=== PATIENT | male | born 1950 | race Two or more races ===

== ENCOUNTER 2023-03-15 23:33 | Emergency (ER) | payer OTHER ==
[~2023-03-15] VITALS: Ht 172.7 cm; Wt 86.4 kg
[2023-03-15 23:38] VITALS: BP 145/74; RESP 20; O2SAT 98
[2023-03-16 05:50] VITALS: PULSE 77
== END 2023-03-16 05:44 | disposition home or self-care (01) ==
LOC: EDBD 23:33 → ER 23:33
DX: S16.1XXA Strain of muscle, fascia and tendon at neck level, initial encounter (principal); S46.812A Strain of other muscles, fascia and tendons at shoulder and upper arm level, left arm, initial encounter; R51.9 Headache, unspecified; E11.9 Type 2 diabetes mellitus without complications; I10 Essential (primary) hypertension; V53.5XXA Driver of pick-up truck or van injured in collision with car, pick-up truck or van in traffic accident, initial encounter; Y93.I9 Activity, other involving external motion; Y92.89 Other specified places as the place of occurrence of the external cause; Y99.8 Other external cause status
CPT/HCPCS: 70450; 71250; 72125; 73030; 74176; 93005

== ENCOUNTER 2025-03-31 13:33 | Inpatient (IN) | payer OTHER, MEDICAID ==
[~2025-03-31] VITALS: Ht 172.7 cm; Wt 86.4 kg
[~2025-03-31 13:33] MED LIST: CETI-120 PO; HYDR-4798 PO; LISI-275 PO; METF-372 PO; ROSU10TA64 PO
--- NOTE | 2025-03-31 13:44 | ECG ---
[facility] Test Date: 2025-03-31 Test Time: 13:36:20 Pat Name: EVELIA SHERWOOD Department: [facility] ED Patient ID: [id number] Room: 0217T Gender: M Meat Team Member: GP : 1950 Requested By: KAR GOINS Order Number: [id number] Reading MD: Gatito St Measurements Intervals [place] Rate: 72 P: 28 DE: 156 QRS: -50 QRSD: 128 T: 74 QT: 429 QTc: 470 Interpretive Statements Sinus rhythm Nonspecific IVCD with LAD Electronically Signed On 04-04-2025 22:02:[address] Please click the below link to view image of tracing.
[2025-03-31 14:10] LABS: Chloride 104 mmol/L (98-107); Potassium 4.1 mmol/L (3.5-5.1); Sodium 137 mmol/L (136-145)
[2025-03-31 14:11] LABS: Anion Gap 8 (5-15); Carbon Dioxide 25 mmol/L (20-31)
[2025-03-31 14:15] LABS: Hematocrit 42.4 % (41.0-53.0); Hemoglobin 15.3 g/dL (13.5-17.5); Mean Corpuscular Hemoglobin 29.4 pg (28.0-32.0); Mean Corpuscular Volume 81.5 fL (80.0-100.0); Nucleated Red Blood Cells % 0.1 %
[2025-03-31 14:16] LABS: BUN/Creatinine Ratio 11.8 (10.0-20.0); Blood Urea Nitrogen 9 mg/dL (9-23)
[2025-03-31 14:17] LABS: Calcium 8.7 mg/dL (8.7-10.4); Glucose 183 mg/dL (74-106)
--- NOTE | 2025-03-31 14:27 | DVH ---
EXAM: XY CHEST PORTABLE HISTORY: sob TECHNIQUE: 1 view of the chest COMPARISON: None FINDINGS/IMPRESSION: LUNGS: No pleural effusion, consolidation, or pneumothorax MEDIASTINUM: Unremarkable BONES: No acute osseous abnormality OTHER: None
[2025-03-31] MEDS: ENOXAPARIN SOD 80 MG/0.8ML SYRINGE SC ONE (14:57)
[2025-03-31] MEDS: METOPROLOL TARTRATE 50 MG TAB PO ONE (14:57)
--- NOTE | 2025-03-31 15:03 | DVHINCON2 ---
Date Seen: Mar 31, [address] Amaya Reason for Consultation NSTEMI History of Present Illness A 74-year-old male with a history of type 2 diabetes mellitus, hypertension, and neuropathy presented to the ED via EMS with complaint of chest pain. The patient reports that yesterday, while watching TV he developed a nonradiating chest pressure that lasted about 30 minutes. He states that walking around he lped relieve the discomfort. Later that night while in bed, he experienced chest pain again, which resolved after taking Caret. Today, he presented to [facility], were abnormal labs prompted transferred to the ED. on arrival, he is alert and oriented x3 and reports resolution of chest pressure. He denies diaphoresis, syncope, dyspnea, or shortness of breath. A 12 lead EKG revealed normal sinus rhythm with PVCs. Initial troponin was 198. Past Medical History As stated in HPI Past Surgical History Denies Family History Reviewed, non-contributory to the management of this case. Social History The patient lives at home, denies smoking, alcohol or illicit drugs abuse. Allergies: Coded Allergies: NO KNOWN ALLERGIES (Unverified , 03/31/25) Review of Systems Constitutional: No symptom reported Ears, Nose, & Throat: No symptom reported Eyes: No symptom reported Neurological: No symptoms reported Pulmonary/Respiratory: No symptom reported Cardiovascular: Chest pain Gastrointestinal: No symptom reported Genitourinary: No symptom reported Musculoskeletal: No symptom reported Skin: No symptom reported Psychiatric: No symptom reported Endocrine: No symptom reported Hemotologic/Lymphatic: No symptom reported Vital Signs Vital Signs Date Time Temp Pulse Resp B/P (MAP) Pulse Ox O2 Delivery O2 Flow Rate FiO2 03/31/25 14:37 Room Air* 0 21 03/31/25 14:24 71 03/31/25 13:51 97.6 20 146/90 98 97.6 Physical Exam INITIAL VITAL SIGNS: Reviewed by me GENERAL: Alert and interactive. No acute distress. HEAD: Head is normocephalic and atraumatic. EYES: EOMI, PERRL. No scleral icterus. No conjunctival injection. ENT: Moist mucous membranes. NECK: Supple, No masses, Full range of motion. RESPIRATORY: No tachypnea. Clear breath sounds bilaterally. No wheezing, rales, rhonchi. CV: Regular rate and rhythm. No murmurs, rubs, or gallops. GI/: Active bowel sounds, soft, nondistended, nontender. No guarding. No rebound. No masses. No CVA tenderness. INTEGUMENTARY: Warm and dry. No obvious rashes. NEUROLOGIC: Alert and oriented. Face is symmetric. Speech is normal. Moves all extremities equally. Labs/Diagnostic Data Labs Test 03/31/25 14:40 03/31/25 13:45 Range/Units White Blood Count 7.6 4.4-10.8 10^3/uL Red Blood Count 5.21 4.5-5.90 10^6/uL Hemoglobin 15.3 13.5-17.5 g/dL Hematocrit 42.4 41.0-53.0 % Mean Corpuscular Volume 81.5 80.0-100.0 fL Mean Corpuscular Hemoglobin 29.4 28.0-32.0 pg Mean Corpuscular Hemoglobin Concent 36.1 H 32.0-36.0 g/dL Red Cell Distribution Width 13.7 11.8-14.3 % Platelet Count 205 140-450 10^3/uL Mean Platelet Volume 7.8 6.9-10.8 fL Neutrophils (%) (Auto) 68.6 37.0-80.0 % Lymphocytes (%) (Auto) 25.6 10.0-50.0 % Monocytes (%) (Auto) 4.5 0.0-12.0 % Eosinophils (%) (Auto) 0.5 0.0-7.0 % Basophils (%) (Auto) 0.8 0.0-2.0 % Neutrophils # (Auto) 5.2 1.6-8.6 10 ^3/uL Lymphocytes # (Auto) 1.9 0.4-5.4 10 ^3/uL Monocytes # (Auto) 0.3 0-1.3 10 ^3/uL Eosinophils # (Auto) 0 0-0.8 10 ^3/uL Basophils # (Auto) 0.1 0-0.2 10 ^3/uL Nucleated Red Blood Cells 0.1 % Sodium Level 137 136-145 mmol/L Potassium Level 4.1 3.5-5.1 mmol/L Chloride Level 104 98-107 mmol/L Carbon Dioxide Level 25 20-31 mmol/L Anion Gap 8 5-15 Blood Urea Nitrogen 9 9-23 mg/dL Creatinine 0.76 0.700-1.30 mg/dL Glomerular Filtration Rate Calc 94 >90 mL/min BUN/Creatinine Ratio 11.8 10.0-20.0 Serum Glucose 183 H 74-106 mg/dL Calcium Level 8.7 8.7-10.4 mg/dL PROCEDURE(s): CXRP - CHEST PORTABLE REASON: sob ORDER NUMBER(s): [id number], ACCESSION NUMBER(s): [id number] EXAM: XY CHEST PORTABLE HISTORY: sob TECHNIQUE: 1 view of the chest COMPARISON: None FINDINGS/IMPRESSION: LUNGS: No pleural effusion, consolidation, or pneumothorax MEDIASTINUM: Unremarkable BONES: No acute osseous abnormality OTHER: None Assessment NSTEMI possible type 1 Chest pain to rule out ACS Hypertension Diabetes mellitus type 2 Neuropathy Plan/Recommendation (Dr. Weems ): * ACS protocol * Aspirin, atorvastatin, metoprolol * Echocardiogram to assess ventricular function and structural abnormalities * Magnesium IV x 1 for PVCs * Monitor electrolytes and replete as needed * Continue telemetry monitoring * Optimize management of diabetes and hypertension per primary team Scheduled for left heart catheterization tomorrow 04/01/[address] Weems. Risk/benefits discussed with patient, patient agrees to proceed. Consent obtained This medical document was created using an electronic medical record system with voice recognition software and computerized dictation system. Although this document has been carefully reviewed, there might still be some phonetic and typographical errors. Occasional wrong-word or ``sound-alike substitutions may have occurred due to the inherent limitations of voice recognition software. These areas are purely typographical due to imperfections of the software programs and do not reflect any compromise in the patient's medical care. Please read the chart carefully and recognize, using context, where these substitutions have occurred. Plan discussed with: Patient Plan discussed with: Patient, Other (RN) NYHA Physical activity limitations: NA Date of Service: Mar 31, 2025 Billing Provider: PERNELL WEEMS MD Cardiology Common Codes: NOT BILLABLE Cardiology Consultation Codes: 29101-[id number] CONSULT <45MIN TYRESE ATKINS NEGATIVE DEVELOPER Mar 31, 2025 15:03
--- NOTE | 2025-03-31 15:15 | DVHINCON2 ---
Allergies: Coded Allergies: NO KNOWN ALLERGIES (Unverified , 03/31/25) Vital Signs Vital Signs Date Time Temp Pulse Resp B/P (MAP) Pulse Ox O2 Delivery O2 Flow Rate FiO2 03/31/25 14:57 71 131/75 03/31/25 14:37 Room Air* 0 21 03/31/25 13:51 97.6 20 98 97.6 Labs/Diagnostic Data Labs Test 03/31/25 14:40 03/31/25 13:45 Range/Units White Blood Count 7.6 4.4-10.8 10^3/uL Red Blood Count 5.21 4.5-5.90 10^6/uL Hemoglobin 15.3 13.5-17.5 g/dL Hematocrit 42.4 41.0-53.0 % Mean Corpuscular Volume 81.5 80.0-100.0 fL Mean Corpuscular Hemoglobin 29.4 28.0-32.0 pg Mean Corpuscular Hemoglobin Concent 36.1 H 32.0-36.0 g/dL Red Cell Distribution Width 13.7 11.8-14.3 % Platelet Count 205 140-450 10^3/uL Mean Platelet Volume 7.8 6.9-10.8 fL Neutrophils (%) (Auto) 68.6 37.0-80.0 % Lymphocytes (%) (Auto) 25.6 10.0-50.0 % Monocytes (%) (Auto) 4.5 0.0-12.0 % Eosinophils (%) (Auto) 0.5 0.0-7.0 % Basophils (%) (Auto) 0.8 0.0-2.0 % Neutrophils # (Auto) 5.2 1.6-8.6 10 ^3/uL Lymphocytes # (Auto) 1.9 0.4-5.4 10 ^3/uL Monocytes # (Auto) 0.3 0-1.3 10 ^3/uL Eosinophils # (Auto) 0 0-0.8 10 ^3/uL Basophils # (Auto) 0.1 0-0.2 10 ^3/uL Nucleated Red Blood Cells 0.1 % Sodium Level 137 136-145 mmol/L Potassium Level 4.1 3.5-5.1 mmol/L Chloride Level 104 98-107 mmol/L Carbon Dioxide Level 25 20-31 mmol/L Anion Gap 8 5-15 Blood Urea Nitrogen 9 9-23 mg/dL Creatinine 0.76 0.700-1.30 mg/dL Glomerular Filtration Rate Calc 94 >90 mL/min BUN/Creatinine Ratio 11.8 10.0-20.0 Serum Glucose 183 H 74-106 mg/dL Calcium Level 8.7 8.7-10.4 mg/dL TYRESE ATKINS [facility] Mar 31, 2025 15:15
[2025-03-31 15:36] LABS: Triglycerides 131 mg/dL (< 150)
[2025-03-31 15:38] LABS: Cholesterol 93 mg/dL (< 200)
--- NOTE | 2025-03-31 15:41 | ED.PDOC ---
History of Present Illness HPI Comments 74-year-old male brought by paramedics from [facility] ([facility] because of chest pain. Patient states that he has been having chest pain since yesterday for which he went to [facility] ([facility] did some basic lab work when show troponin to be elevated. He was given aspirin in the field. Patient continues to have chest pain. History of hypertension diabetes. Denies any other symptoms. Chief Complaint: Chest Pain Time Seen by MD: 13:52 Primary Care Provider: UNKNOWN Reviewed Notes: Nurses Notes, Medications, Allergies Allergies: Coded Allergies: NO KNOWN ALLERGIES (Unverified , 03/31/25) Information Source: Patient, Emergency Med Personnel Mode of Arrival: EMS Severity: Moderate Timing: Days Duration: Since onset Past Medical History PAST MEDICAL HISTORY: DM, HTN Surgical History: Denies all surgeries Family History Family History: Unknown Social History Smoker: Non-Smoker Alcohol: Denies ETOH Use Drugs: Denies Drug Use Lives In: Home Constitutional: denies: chills, diaphoresis, fatigue, fever, malaise, sweats, weakness, others EENTM: denies: blurred vision, double vision, ear bleeding, ear discharge, ear drainage, ear pain, ear ringing, eye pain, eye redness, hearing loss, mouth pain, mouth swelling, nasal discharge, nose bleeding, nose congestion, nose pain, photophobia, tearing, throat pain, throat swelling, voice changes, others Respiratory: denies: cough, hemoptysis, orthopnea, SOB at rest, shortness of breath, SOB with excertion, stridor, wheezing, others Cardiovascular: reports: chest pain; denies: dizzy spells, diaphoresis, Dyspnea on exertion, edema, irregular heart beat, left arm pain, lightheadedness, palpitations, PND, syncope, others Gastrointestinal: denies: abdomen distended, abdominal pain, blood streaked bowels, constipated, diarrhea, dysphagia, difficulty swallowing, hematemesis, melena, nausea, poor appetite, poor fluid intake, rectal bleeding, rectal pain, vomiting, others Genitourinary: denies: burning, dysuria, flank pain, frequency, hematuria, incontinence, penile discharge, penile sore, pain, testicle pain, testicle swelling, urgency, others Neurological: denies: dizziness, fainting, headache, left sided numbness, left sided weakness, numbness, paresthesia, pre-existing deficit, right sided numbn ess, right sided weakness, seizure, speech problems, tingling, tremors, weakness, others Musculoskeletal: denies: back pain, gout, joint pain, joint swelling, muscle pain, muscle stiffness, neck pain, others Integumetry: denies: bruises, change in color, change in hair/nails, dryness, laceration, lesions, lumps, rash, wounds, others Allergic/Immunocompromised: denies: Difficulty Healing, Frequent Infections, Hives, Itching, others Hematologic/Lymphatic: denies: anemia, blood clots, easy bleeding, easy bruising, swollen glands, others Endocrine: denies: excessive hunger, excessive sweating, excessive thirst, excessive urination, flushing, intolerance to cold, intolerance to heat, unexplained weight gain, unexplained weight loss, others Psychiatric: denies: anxiety, bipolar disorder, depression, hopeless, panic disorder, schizophrenia, sleepless, suicidal, others Physical Exam General Appearance: Moderate Distress HEENT: Normal ENT Inspection, Pharynx Normal, TMs Normal Neck: Full Range of Motion, Non-Tender, Normal, Normal Inspection Respiratory: Chest Non-Tender, Lungs Clear, No Accessory Muscle Use, No Respiratory Distress, Normal Breath Sounds Cardiovascular: No Edema, No JVD, No Murmur, No Gallop, Normal Peripheral Pulses, Regular Rate/Rhythm Breast Exam: Deferred Gastrointestinal: No Organomegaly, Non Tender, No Pulsatile Mass, Normal Bowel Sounds, Soft Genitalia: Deferred Pelvic: Deferred Rectal: Deferred Extremities: No calf tenderness, Normal capillary refill, Normal inspection, Normal range of motion, Non-tender, No pedal edema Musculoskeletal : Apperance: Normal Neurologic: Alert, genetics nurse II-XII nml as Tested, No Motor Deficits, Normal Affect, Normal Mood, No Sensory Deficits Cerebellar Function: Normal Reflexes: Normal Skin: Dry, Normal Color, Warm Peripheral Pulses: 3+ Radial (R), 3+ Radial (L) Lymphatic: No Adenopathy Was a procedure done? Was a procedure done?: No EKG EKG : Pulse Rate (adult): 88 Cardiac Rhythm: PVC's Differential Dx Considerations may include: Anemia Electrolyte imbalance X-Ray, Labs, Meds, VS Vital Signs Date Time Temp Pulse Resp B/P (MAP) Pulse Ox O2 Delivery O2 Flow Rate FiO2 03/31/25 14:57 71 131/75 03/31/25 14:37 Room Air* 0 21 03/31/25 14:24 71 03/31/25 13:51 97.6 75 20 146/90 98 97.6 03/31/25 13:36 72 Lab Test 03/31/25 14:40 03/31/25 13:45 Range/Units Troponin I High Sensitivity 190 *H 198 *H </=54 ng/L White Blood Count 7.6 4.4-10.8 10^3/uL Red Blood Count 5.21 4.5-5.90 10^6/uL Hemoglobin 15.3 13.5-17.5 g/dL Hematocrit 42.4 41.0-53.0 % Mean Corpuscular Volume 81.5 80.0-100.0 fL Mean Corpuscular Hemoglobin 29.4 28.0-32.0 pg Mean Corpuscular Hemoglobin Concent 36.1 H 32.0-36.0 g/dL Red Cell Distribution Width 13.7 11.8-14.3 % Platelet Count 205 140-450 10^3/uL Mean Platelet Volume 7.8 6.9-10.8 fL Neutrophils (%) (Auto) 68.6 37.0-80.0 % Lymphocytes (%) (Auto) 25.6 10.0-50.0 % Monocytes (%) (Auto) 4.5 0.0-12.0 % Eosinophils (%) (Auto) 0.5 0.0-7.0 % Basophils (%) (Auto) 0.8 0.0-2.0 % Neutrophils # (Auto) 5.2 1.6-8.6 10 ^3/uL Lymphocytes # (Auto) 1.9 0.4-5.4 10 ^3/uL Monocytes # (Auto) 0.3 0-1.3 10 ^3/uL Eosinophils # (Auto) 0 0-0.8 10 ^3/uL Basophils # (Auto) 0.1 0-0.2 10 ^3/uL Nucleated Red Blood Cells 0.1 % Prothrombin Time Pending Prothrombin Time INR Pending Activated Partial Thromboplast Time Pending Sodium Level 137 136-145 mmol/L Potassium Level 4.1 3.5-5.1 mmol/L Chloride Level 104 98-107 mmol/L Carbon Dioxide Level 25 20-31 mmol/L Anion Gap 8 5-15 Blood Urea Nitrogen 9 9-23 mg/dL Creatinine 0.76 0.700-1.30 mg/dL Glomerular Filtration Rate Calc 94 >90 mL/min BUN/Creatinine Ratio 11.8 10.0-20.0 Serum Glucose 183 H 74-106 mg/dL Hemoglobin A1c Pending Calcium Level 8.7 8.7-10.4 mg/dL Triglycerides Level Pending Cholesterol Level Pending LDL Cholesterol Pending HDL Cholesterol Pending Thyroid Stimulating Hormone (TSH) Pending Current Medications Medications (Trade) Dose Ordered Sig/Adonis Route Start Time Stop Time Status Last Admin Metoprolol Tartrate (Lopressor Tablet) 50 mg ONCE ONCE PO 03/31/25 14:30 03/31/25 14:31 DC 03/31/25 14:57 Enoxaparin Sodium (Lovenox) 80 mg ONCE ONCE SC 03/31/25 14:30 03/31/25 14:31 DC 03/31/25 14:57 Patient alert. Complaining of chest pain. Cardiac marker elevated. Vitals stable. Answering questions. EKG does show premature ventricular contractions. Was given metoprolol. Was given Lovenox. Spoke with Cardiology. Was given nitro. Was given morphine. Was given Zofran. Continue monitoring. Bruni approved inpatient admission [id number]. Time of 1ST Reevaluation: 15:39 Reevaluation 1ST: Unchanged Patient Education/Counseling: Diagnosis, Treatment, Prognosis Family Education/Counseling: No Family Present SEPSIS Sepsis Screen Date sepsis recognized/suspect: Mar 31, 2025 Time Sepsis recognized/suspect: 9 Recent Procedure: No On Antibiotic Therapy: No Respiratory Rate >20: No Heart Rate >90: No Temp<36 C (96.8 F) or >38.3 C: No SBP <90 or MAP <65 mmHG: No New Acute Mental Status Change: No Is the patient on CPAP, BIPAP,: No Physician Orders Chest Portable (03/31/25 13:52) Urinalysis (03/31/25 13:52) Troponin-I Hs (03/31/25 16:52) * Cardiology Consult (03/31/25 15:08) PTPTT (03/31/25 15:07) Npo Except For Medications (04/01/25 00:01) Sodium Chloride 0.9% (04/01/25 00:15) Obtain Consent For: (03/31/25 15:07) Hold Enoxaparin Day Of Procedu (04/01/25 00:01) Shave Both Groins (03/31/25 15:07) Provide Education Materials (03/31/25 15:07) Comprehensive Metabolic Panel (04/02/25 04:00) Npo (Nothing By Mouth) Diet (04/01/25 Breakfast) Obtain Consent For Anesthesia (03/31/25 15:07) Magnesium Sulfate 1gm/100ml (03/31/25 15:15) Magnesium (04/01/25 08:00) Aspirin Tablet (04/01/25 10:00) Atorvastatin (Lipitor) (03/31/25 22:00) Lipid Panel (03/31/25 15:07) Hemoglobin A1c (03/31/25 15:07) Thyroid Stimulating Hormone (03/31/25 15:07) Metoprolol Tartrate Tablet (Lopressor Ta (03/31/25 22:00) Echo 2d Mode Cardiac Dop (03/31/25 15:07) Vital Signs Date Time Temp Pulse Resp B/P (MAP) Pulse Ox O2 Delivery O2 Flow Rate FiO2 03/31/25 14:57 71 131/75 03/31/25 14:37 Room Air* 0 21 03/31/25 14:24 71 03/31/25 13:51 97.6 75 20 146/90 98 97.6 03/31/25 13:36 72 Laboratory Tests Test 03/31/25 13:45 White Blood Count 7.6 10^3/uL (4.4-10.8) Medications Medications Dose Ordered Sig/Adonis Route Start Time Stop Time Status Last Admin Dose Admin Enoxaparin Sodium 80 mg ONCE ONCE SC 03/31/25 14:30 03/31/25 14:31 DC 03/31/25 14:57 Metoprolol Tartrate 50 mg ONCE ONCE PO 03/31/25 14:30 03/31/25 14:31 DC 03/31/25 14:57 Departure 1 Departure Time of Disposition: 15:40 Impression: Primary Impression: NSTEMI (non-ST elevated myocardial infarction) Disposition: 09 ADMITTED INPATIENT Admit to: Med Surg Condition: Guarded Critical Care Note Critical Care Time?: No Stability Stability form required: No Heart Score Heart Score: Heart Score Response (Comments) Value History Slightly Suspicious 0 EKG Normal 0 Age >65 2 Risk Factors >3 or Hx ASHD 2 Troponin >3 x's Normal limit 2 Total 6 KAR GOINS MD Mar 31, 2025 15:41
[2025-03-31 15:44] LABS: HDL Cholesterol 34 mg/dL (40-59)
[2025-03-31 15:46] LABS: INR 1.09 (0.9-1.15); Partial Thromboplastin Time 30.8 SEC (24.5-34.5); Prothrombin Time 11.5 sec (9.3-11.8)
[2025-03-31] MEDS: MAGNESIUM SULFATE 1GM/100ML 100 ML IV SCH (17:13)
[2025-03-31 17:19] LABS: Urine Protein, UAD Negative (Negative)
[2025-03-31] MEDS ORDERED: ONDANSETRON HCL 4 MG/2 ML VIAL IV PRN (19:45)
[2025-03-31] MEDS ORDERED: ACETAMINOPHEN 325 MG TAB PO PRN (19:45)
[2025-03-31] MEDS ORDERED: MORPHINE SULFATE INJ 2 MG/ml SYRG IV PRN (19:45)
[2025-03-31] MEDS ORDERED: NITROGLYCERIN 0.4 MG SL TAB SL PRN (19:45)
[2025-03-31] MEDS ORDERED: DEXTROSE (50%) 50ML SYRG IV PRN (19:45)
[2025-03-31 21:50] LABS: COVID19 ANTIGEN SOFIA FIA NEGATIVE (NEGATIVE)
[2025-03-31 22:28] VITALS: BP 129/77; PULSE 63; RESP 18; TEMP 98.2; O2SAT 99
[2025-03-31 22:29] VITALS: BP 130/87; PULSE 67; RESP 17; TEMP 97.8; O2SAT 96
[2025-03-31] MEDS: ATORVASTATIN 20 MG TAB PO SCH (22:41)
[2025-03-31] MEDS: METOPROLOL TARTRATE 25 MG TAB PO SCH (22:46)
[2025-03-31] MEDS: ACCU-CHEK COMFORT CURVE STRIP VI SCH (22:47)
[2025-03-31] MEDS: InsuLIN REG 1unit/0.01ml Soln (100units/ml) SC SCH (23:05)
[2025-04-01] VITALS (13 sets, daily range): BP systolic 116–150; BP diastolic 68–108; PULSE 66–88; RESP 14–20; TEMP 97.4–98.3; O2SAT 95–100
[2025-04-01] MEDS ORDERED: SODIUM CHLORIDE 0.9% 1,000 ML IV SCH (00:15)
--- NOTE | 2025-04-01 00:39 | DVHHP2 ---
History of Present Illness Reason for Visit: Chest pain History of Present Illness 74-year-old male presents for evaluation of chest pain. Patient reports a two day history of chest pain. Patient presented today to the [facility] with chest pain. Patient had elevated troponin levels therefore he was transferred for evaluation. Currently rates the pain at 5/10 intensity. No nausea or vomiting. Reports mild shortness for breath. Past Medical History Hypertension and diabetes mellitus Past Surgical History Denies Family History Noncontributory Smoke: No ALCOHOL: none Drugs: None Lives: with Family Review of Systems Review of Systems Review of systems are currently negative otherwise addressed in HPI. Allergies: Coded Allergies: NO KNOWN ALLERGIES (Unverified , 03/31/25) Medications Current Medications Medications Dose Ordered Sig/Adonis Route Start Time Stop Time Status Last Admin Dose Admin Sodium Chloride 1,000 ml @ 0 mls/hr Q0M IV 04/01/25 00:15 Aspirin 81 mg DAILY PO 04/01/25 10:00 Atorvastatin Calcium 80 mg HS PO 03/31/25 22:00 03/31/25 22:41 80 MG Metoprolol Tartrate 12.5 mg BID PO 03/31/25 22:00 03/31/25 22:46 12.5 MG Diagnostic Test (Pha) 1 strip ACHS 03/31/25 22:00 03/31/25 22:47 1 STRIP Insulin Human Regular ACHS SC 03/31/25 22:00 03/31/25 23:05 6 UNITS Dextrose 50 ml UD PRN IV 03/31/25 19:45 Ondansetron HCl 4 mg Q4HP PRN IV 03/31/25 19:45 Acetaminophen 650 mg Q6HP PRN PO 03/31/25 19:45 Nitroglycerin 0.4 mg Q5MINP PRN SL 03/31/25 19:45 Morphine Sulfate 2 mg Q30M PRN IV 03/31/25 19:45 Exam Vital Signs Vital Signs Date Time Temp Pulse Resp B/P (MAP) Pulse Ox O2 Delivery O2 Flow Rate FiO2 03/31/25 22:46 67 130/87 03/31/25 20:00 15 95 03/31/25 14:37 Room Air* 0 21 03/31/25 13:51 97.6 97.6 Exam Gen: 74-year-old male in mild distress. Skin: Warm, dry, normal color and texture, no rash. HEENT: Normocephalic atraumatic, mucous membranes moist and pink. Neck: Cervical and supraclavicular nodes normal without enlargement, trachea is midline, thyroid gland is normal without masses. Pulmonary: Clear to auscultation and percussion bilaterally. Cardiac: Regular rate and rhythm. No murmur Abdomen: Soft, nontender, nondistended, bowel sounds present all 4 quadrants, no guarding, no rigidity, no organomegaly. Extremities: No cyanosis, clubbing, no edema Neuro: Cranial nerves II through XII grossly intact, normal affect and speech, no focal motor deficits. Labs/Xrays ORDERING PHYSICIAN: KAR GOINS MD PROCEDURE(s): CXRP - CHEST PORTABLE REASON: sob ORDER NUMBER(s): [id number], ACCESSION NUMBER(s): [id number] EXAM: XY CHEST PORTABLE HISTORY: sob TECHNIQUE: 1 view of the chest COMPARISON: None FINDINGS/IMPRESSION: LUNGS: No pleural effusion, consolidation, or pneumothorax MEDIASTINUM: Unremarkable BONES: No acute osseous abnormality OTHER: None Labs Test 03/31/25 22:57 03/31/25 20:23 03/31/25 17:02 03/31/25 16:25 Range/Units POC Glucose 155 H 70-106 mg/dl SARS-CoV-2 Antigen (Rapid) Negative NEGATIVE Troponin I High Sensitivity 201 *H </=54 ng/L Urine Color Light-yellow Yellow Urine Clarity Clear Clear Urine pH 5.5 5.0-9.0 Urine Specific [place] 1.011 1.001-1.035 Urine Protein Negative Negative Urine Ketones Negative Negative Urine Blood Negative Negative /uL Urine Nitrite Negative Negative Urine Bilirubin Negative Negative Urine Urobilinogen Normal Negative mg/dL Urine Leukocyte Esterase Negative Negative /uL Urine RBC None seen 0 - 3 /hpf Urine Microscopic WBC < 1 0-3 /HPF Urine Squamous Epithelial Cells Few <5 /hpf Urine Bacteria None seen None Seen /hpf Urine Glucose 2+ H Normal mg/dL Test 03/31/25 13:45 Range/Units White Blood Count 7.6 4.4-10.8 10^3/uL Red Blood Count 5.21 4.5-5.90 10^6/uL Hemoglobin 15.3 13.5-17.5 g/dL Hematocrit 42.4 41.0-53.0 % Mean Corpuscular Volume 81.5 80.0-100.0 fL Mean Corpuscular Hemoglobin 29.4 28.0-32.0 pg Mean Corpuscular Hemoglobin Concent 36.1 H 32.0-36.0 g/dL Red Cell Distribution Width 13.7 11.8-14.3 % Platelet Count 205 140-450 10^3/uL Mean Platelet Volume 7.8 6.9-10.8 fL Neutrophils (%) (Auto) 68.6 37.0-80.0 % Lymphocytes (%) (Auto) 25.6 10.0-50.0 % Monocytes (%) (Auto) 4.5 0.0-12.0 % Eosinophils (%) (Auto) 0.5 0.0-7.0 % Basophils (%) (Auto) 0.8 0.0-2.0 % Neutrophils # (Auto) 5.2 1.6-8.6 10 ^3/uL Lymphocytes # (Auto) 1.9 0.4-5.4 10 ^3/uL Monocytes # (Auto) 0.3 0-1.3 10 ^3/uL Eosinophils # (Auto) 0 0-0.8 10 ^3/uL Basophils # (Auto) 0.1 0-0.2 10 ^3/uL Nucleated Red Blood Cells 0.1 % Prothrombin Time 11.5 9.3-11.8 sec Prothrombin Time INR 1.09 0.9-1.15 Activated Partial Thromboplast Time 30.8 24.5-34.5 SEC Sodium Level 137 136-145 mmol/L Potassium Level 4.1 3.5-5.1 mmol/L Chloride Level 104 98-107 mmol/L Carbon Dioxide Level 25 20-31 mmol/L Anion Gap 8 5-15 Blood Urea Nitrogen 9 9-23 mg/dL Creatinine 0.76 0.700-1.30 mg/dL Glomerular Filtration Rate Calc 94 >90 mL/min BUN/Creatinine Ratio 11.8 10.0-20.0 Serum Glucose 183 H 74-106 mg/dL Hemoglobin A1c 7.9 H <5.7 % A1C Calcium Level 8.7 8.7-10.4 mg/dL Triglycerides Level 131 < 150 mg/dL Cholesterol Level 93 < 200 mg/dL LDL Cholesterol 48 < 100 mg/dL HDL Cholesterol 34 L 40-59 mg/dL Thyroid Stimulating Hormone (TSH) 2.99 0.55-4.78 uIU/mL SEPSIS Sepsis Screen Date sepsis recognized/suspect: Mar 31, 2025 Time Sepsis recognized/suspect: 1438 Recent Procedure: No On Antibiotic Therapy: No Respiratory Rate >20: No Heart Rate >90: No Temp<36 C (96.8 F) or >38.3 C: No SBP <90 or MAP <65 mmHG: No New Acute Mental Status Change: No Is the patient on CPAP, BIPAP,: No Physician Orders Basic Metabolic Panel (04/01/25 04:00) Glucose Blood (Accu-Chek Comfort Curve T (03/31/25 22:00) Insulin R (Human) (Insulin R) (03/31/25 22:00) Dextrose 50% Syringe (03/31/25 19:45) Admit (03/31/25 19:35) Ondansetron Hcl (Zofran) (03/31/25 19:45) Condition: Fair (03/31/25 19:35) Acetaminophen Tablet (Tylenol Tablet) (03/31/25 19:45) Bedrest With Bathroom Privileg (03/31/25 19:35) Nitroglycerin Sublingual (Ntrostat Subli (03/31/25 19:45) Morphine Sulfate Injection (03/31/25 19:45) Stat Ekg For Chest Pain (03/31/25 19:35) Notify Md Of Changes From Base (03/31/25 19:35) Bundle Clerk For 24 Hours (03/31/25 19:35) Emergency Dysrhythmia Protocol (03/31/25 19:35) Rhythm Strips Once Every Shift (03/31/25 19:35) Oxygen By Nasal Cannula (03/31/25 19:35) Magnesium (04/01/25 04:00) Vital Signs Date Time Temp Pulse Resp B/P (MAP) Pulse Ox O2 Delivery O2 Flow Rate FiO2 03/31/25 22:46 67 130/87 03/31/25 20:00 62 15 127/69 (88) 95 03/31/25 18:00 62 12 149/92 (111) 94 Laboratory Tests Test 03/31/25 13:45 White Blood Count 7.6 10^3/uL (4.4-10.8) Medications Medications Dose Ordered Sig/Adonis Route Start Time Stop Time Status Last Admin Dose Admin Atorvastatin Calcium 80 mg HS PO 03/31/25 22:00 03/31/25 22:41 80 MG Diagnostic Test (Pha) 1 strip ACHS 03/31/25 22:00 03/31/25 22:47 1 STRIP Enoxaparin Sodium 80 mg ONCE ONCE SC 03/31/25 14:30 03/31/25 14:31 DC 03/31/25 14:57 80 MG Insulin Human Regular ACHS SC 03/31/25 22:00 03/31/25 23:05 6 UNITS Magnesium Sulfate/ Dextrose 100 ml @ 100 mls/hr Q1H IV 03/31/25 15:15 03/31/25 17:14 DC 03/31/25 18:15 100 MLS/HR Metoprolol Tartrate 12.5 mg BID PO 03/31/25 22:00 03/31/25 22:46 12.5 MG Metoprolol Tartrate 50 mg ONCE ONCE PO 03/31/25 14:30 03/31/25 14:31 DC 03/31/25 14:57 50 MG Assessment/Plan Assessment/Plan Assessment NSTEMI Diabetes mellitus Hypertension Plan Admit the patient to telemetry to the hospitalist Cardiology consultation NPO after midnight ACS protocol Continue treatment per orders. Plan discussed with: Patient My Orders Orders - XANDER MALDONADO Procedure Category Date Status Time Basic Metabolic Panel LAB 04/01/25 Logged 04:00 Glucose Blood PHA 03/31/25 In Process (Accu-Chek Comfort 22:00 Insulin R (Human) PHA 03/31/25 In Process (Insulin R) 22:00 Dextrose 50% Syringe PHA 03/31/25 In Process 19:45 Admit ADMIT 03/31/25 Transmitted 19:35 Ondansetron Hcl PHA 03/31/25 In Process (Zofran) 19:45 Condition: Fair JUAN PABLO 03/31/25 In Process 19:35 Acetaminophen Tablet PHA 03/31/25 In Process (Tylenol Tablet) 19:45 Bedrest With Bathroom JUAN PABLO 03/31/25 In Process Privileg 19:35 Nitroglycerin PHA 03/31/25 In Process Sublingual (Ntrostat 19:45 Morphine Sulfate PHA 03/31/25 In Process Injection 19:45 Stat Ekg For Chest [facility] 03/31/25 In Process Pain 19:35 Notify Md Of Changes [facility] 03/31/25 In Process From Base 19:35 Bundle Clerk For [facility] 03/31/25 In Process 24 Hours 19:35 Emergency Dysrhythmia [facility] 03/31/25 In Process Protocol 19:35 Rhythm Strips Once [facility] 03/31/25 In Process Every Shift 19:35 Oxygen By Nasal RT 03/31/25 Transmitted Cannula 19:35 Magnesium LAB 04/01/25 Logged 04:00 Date of Service: Mar 31, 2025 Billing Provider: XANDER MALDONADO Common Visit Codes: [id number] INP/OBS CARE (HIGH) XANDER MALDONADO Apr 01, 2025 00:39
[2025-04-01] MEDS ORDERED: MELATONIN 5 MG TAB PO ONE (01:30)
[2025-04-01] MEDS: MELATONIN 5 MG TAB PO ONE (01:31)
[2025-04-01 06:39] LABS: Chloride 104 mmol/L (98-107); Potassium 3.9 mmol/L (3.5-5.1); Sodium 137 mmol/L (136-145)
[2025-04-01 06:40] LABS: Anion Gap 9 (5-15); Carbon Dioxide 24 mmol/L (20-31)
[2025-04-01 06:43] LABS: Calcium 8.6 mg/dL (8.7-10.4)
[2025-04-01 06:45] LABS: BUN/Creatinine Ratio 11.3 (10.0-20.0)
[2025-04-01 06:46] LABS: Magnesium 2.1 mg/dL (1.6-2.6)
[2025-04-01 06:47] LABS: Blood Urea Nitrogen 8 mg/dL (9-23); Glucose 167 mg/dL (74-106)
--- NOTE | 2025-04-01 10:26 | DVHPN2 ---
Progress Note Date Seen: Apr 01, 2025 Has the PT tested + for MRSA If YES, has PT been informed?: No Medical Necessity Reason Pt with a Central, PICC or Fol: No Subjective Patient reports: No new complaints Review of Systems: HEENT:Normal, CVS:Normal, RESPIRATORY:Normal, GI:Normal, :Normal, MSK:Normal, NEURO:Normal Objective vital signs Vital Sign Date Time Temp Pulse Resp B/P (MAP) Pulse Ox O2 Delivery O2 Flow Rate FiO2 04/01/25 09:48 73 143/91 04/01/25 08:45 97.6 18 97 97.6 04/01/25 08:26 Room Air* 0 21 Total Intake and Output 03/31/25 03/31/25 04/01/25 15:00 23:00 07:00 Intake Total 200 ml 0 ml Balance 200 ml 0 ml medications Current Medications Medications Dose Ordered Sig/Adonis Route Start Time Stop Time Status Last Admin Dose Admin Sodium Chloride 1,000 ml @ 0 mls/hr Q0M IV 04/01/25 00:15 Aspirin 81 mg DAILY PO 04/01/25 10:00 04/01/25 09:48 81 MG Atorvastatin Calcium 80 mg HS PO 03/31/25 22:00 03/31/25 22:41 80 MG Metoprolol Tartrate 12.5 mg BID PO 03/31/25 22:00 04/01/25 09:48 12.5 MG Diagnostic Test (Pha) 1 strip ACHS 03/31/25 22:00 04/01/25 06:48 1 STRIP Insulin Human Regular ACHS SC 03/31/25 22:00 04/01/25 06:49 3 UNITS Dextrose 50 ml UD PRN IV 03/31/25 19:45 Ondansetron HCl 4 mg Q4HP PRN IV 03/31/25 19:45 Acetaminophen 650 mg Q6HP PRN PO 03/31/25 19:45 Nitroglycerin 0.4 mg Q5MINP PRN SL 03/31/25 19:45 Morphine Sulfate 2 mg Q30M PRN IV 03/31/25 19:45 Examination: GENERAL:Normal, HEENT:Normal, NECK:Normal, LUNGS:Normal, CVS:Normal, ABDOMEN:Normal, MSK:Normal, SKIN:Normal, NEURO:Normal, :Normal laboratory and microbiology Laboratory Tests 04/01/25 05:48 03/31/25 13:45 Test 04/01/25 05:48 Range/Units Serum Glucose 167 H 74-106 mg/dL Problem List/Assessment/Plan Problem List/Assessment/Plan #1 acute mi: c angio today #2 dm: ssi #3 htn Plan discussed with: Patient Critical Care Time (mins): 36 (critical care time 36 mins) Date of Service: Apr 01, 2025 Billing Provider: XANDER ARCHIBALD MD Common Visit Codes: [id number] CARE 30-74 MIN XANDER ARCHIBALD MD Apr 01, 2025 10:26
[2025-04-01] MEDS: VERAPAMIL 2.5MG/ML INJ 2ML VIAL IV ONE (15:06)
[2025-04-01] MEDS: ANGIOMAX 250 MG VIAL IV ONE (15:06)
[2025-04-01] MEDS: HEPARIN SODIUM (PORCINE) 5000 UNITS/ML 1ML VIAL ONE (15:06)
[2025-04-01] MEDS: SODIUM CHL 0.9% 50 ML ONE (15:07)
[2025-04-01] MEDS: LIDOCAINE 2%HCL (LOCAL ANESTH.) INJ 20ML MDV ONE (15:07)
[2025-04-01] MEDS: fentaNYL CITRATE 100 MCG/2 ML VL ONE (15:07)
[2025-04-01] MEDS: MIDAZOLAM HCL 2MG/2ML 2ml VIAL (1mg/ml) ONE (15:07)
[2025-04-01] MEDS: EPINEPHrine HCL 1 MG/10 ML SYRG ONE (15:58)
[2025-04-01] MEDS: ATROPINE SULF 1 MG/10ml SYR ONE (15:58)
--- NOTE | 2025-04-01 16:26 | DVHOP2 ---
Operative Report Operative Report CARDIAC DIRECTIONAL DRILL OPERATOR PROCEDURE REPORT [place], [place] Date of Service: 04/01/25 Washer Assembler: Pernell Weems MD PROCEDURES PERFORMED: Coronary angiogram, left heart catheterization, conscious sedation administration and supervision, less than 15 minutes; fluoroscopy use and interpretation. sedation 15-30 mins, PTCA 1 vessel, PCI 1 vessel, shockwave Intravascular lithotroipsy treatment 05227, acute IN intervention PREOPERATIVE DIAGNOSES: nstemi , PVCs POSTOP DIAGNOSIS: severe 1v cad DESCRIPTION OF PROCEDURE: The patient or appropriate family signed informed consent understanding the risks, benefits and alternatives of the procedure, they wished to proceed. The patient was brought to the cardiac offset label rewinder in n.p.o. state. The patient was prepped in a sterile fashion. Sedation was used per cardiac cath protocol. I administered 2 mL of 2% lidocaine to the right wrist. With an antegrade front wall puncture. I cannulated the right radial artery and placed a 6-[place] slender. Next, an intra-arterial spasmolytic was administered. Next, a - 6[place] catheter and XB 3.5 guide and were used for coronary angiogram and LVEDP measurement and pressure pullback. At the completion of procedure, all guides and wires were removed, and there were no immediate complications. FINDINGS: RCA: Moderate vessel off the right sinus of Valsalva, there is no severe flow limiting stenosis. codominant LEFT MAIN: Moderate size left main, it bifurcates into LAD and circumflex. no severe stenosis . CIRCUMFLEX: Moderate caliber vessel coming off the left main .prox CX is patent mid CX is 70% short focal stenosis. LAD: LAD is a moderate caliber vessel coming of the left main. prox LAD has moderate plaque. mid LAD after large D1 has a 99% ruptured plaque. mid to distal LAD has long 40-50% stenosis INTERVENTION: We decided to proceed with coronary intervention. I started with a 6F _XB 3.5 ___ Guide to intubate the _ LM _. Angiomax bolus and gtt was started. Following this, I decided to wire using an .014 BMW across the culprit lesion with ease. At this time, we performed balloon angioplasty with a _2.5 x 12 mm balloon up o 12 atms and then given calcium , I used IVL by [employer] IVL____2.5 ___ balloon up to __2 ___ ATMS over __15__ seconds with __10 pulses each for total of 20 pulses__ number of inflations. Following this, I decided to place a stent using a 2.75 x 22 mm onyx____ stent inflated up to __15 __ ATMS over 15 seconds with two separate inflations. Following this, the stent balloon removed and angio performed showing 0% residual stenosis. FIDLEIA pre/post: 3./3 CONCLUSIONS: 1. sp shockwave intravascular lithotripsy and stenting to a 99% mid LAD calcific stenosis PLAN: Aggressive risk factor modification and medical management for the patient. DAPT x 1 year uninterrupted PERNELL WEEMS MD Apr 01, 2025 16:26
--- NOTE | 2025-04-01 16:36 | DVHSR ---
APPROVED REPORT EXAM: Two-dimensional and M-mode echocardiogram with Doppler and color Doppler. Blood Pressure: 116/76 mmHg INDICATION NSTEMI RISK FACTORS Height: 5'8", Weight: 185 DIMENSIONS LVDd5.4 (3.8-5.7cm)LA (2D)4.6 (1.9-4.0cm)Aortic Root3.9 (2.0-3.7cm) LVDs4.2 (2.5-4.0cm)LA (MM) (1.9-4.0cm)Aortic Cusp Exc1.9 (1.5-2.0cm) EF (%) 45.0 (55-70%)Rt. Atrium3.7 (1.9-4.0cm)Asc. Aorta3.8 cm IVSd1.1 (0.7-1.1cm)RV (D)3.6 (1.8-2.4cm) PWd1.1 (0.7-1.1cm) Mitral Valve MitralMitral Stenosis E/A ratio0.02D MVAcm2 Aortic Valve Aortic ValveAortic Stenosis V10.60m/[place]ile Mean GR.3mmHg V21.04m/[place]ile Peak GR.4mmHg LVOT Diameter2.5 (1.8-2.4cm)Doppler AVA2.83cm2 AI P 1/2 Dggs869.97ms Pulmonic Valve V20.80m/s Tricuspid Valve TR Velocity2.22m/s [id number] Conclusion lvef 45% hypokinetic apex of LV mild LVH RV ceferino lfunction left atrium enlarged
[2025-04-01] MEDS: TICAGRELOR 90 MG TAB ONE (16:42)
[2025-04-01] MEDS: TICAGRELOR 90 MG TAB PO SCH (21:33)
[2025-04-02 05:00] VITALS: BP 144/87; PULSE 56; RESP 18; TEMP 97.9; O2SAT 97
[2025-04-02 08:00] VITALS: PULSE 76
[2025-04-02 08:33] VITALS: BP 126/83; PULSE 83; RESP 15; TEMP 97.5; O2SAT 97
[2025-04-02 09:46] LABS: Alanine Aminotransferase 17 U/L (7-40); Albumin 4.3 g/dL (3.2-4.8); Alkaline Phosphatase 62 U/L (46-116); Anion Gap 11 (5-15); BUN/Creatinine Ratio 14.3 (10.0-20.0); Blood Urea Nitrogen 10 mg/dL (9-23); Calcium 9.0 mg/dL (8.7-10.4); Carbon Dioxide 22 mmol/L (20-31); Chloride 106 mmol/L (98-107); Magnesium 2.1 mg/dL (1.6-2.6); Potassium 3.8 mmol/L (3.5-5.1); Sodium 139 mmol/L (136-145); Total Protein 6.9 g/dL (5.7-8.2)
[2025-04-02 09:47] LABS: Bilirubin, Total 1.9 mg/dL (0.2-1.0); Glucose 159 mg/dL (74-106)
[2025-04-02 10:33] LABS: Hematocrit 48.3 % (41.0-53.0); Hemoglobin 17.1 g/dL (13.5-17.5); Mean Corpuscular Hemoglobin 28.8 pg (28.0-32.0); Mean Corpuscular Volume 81.4 fL (80.0-100.0); Nucleated Red Blood Cells % 0.0 %
--- NOTE | 2025-04-02 10:37 | DVHDS2 ---
Discharge Summary Date of Admission Mar 31, 2025 at 19:35 Date of Discharge: Apr 02, 2025 Labs/Diagnostic Data: Laboratory Results Test 04/02/25 08:15 04/02/25 06:04 03/31/25 20:23 03/31/25 17:02 White Blood Count 10.5 10^3/uL (4.4-10.8) Red Blood Count 5.93 10^6/uL (4.5-5.90) Hemoglobin 17.1 g/dL (13.5-17.5) Hematocrit 48.3 % (41.0-53.0) Mean Corpuscular Volume 81.4 fL (80.0-100.0) Mean Corpuscular Hemoglobin 28.8 pg (28.0-32.0) Mean Corpuscular Hemoglobin Concent 35.4 g/dL (32.0-36.0) Red Cell Distribution Width 13.5 % (11.8-14.3) Platelet Count 229 10^3/uL (140-450) Mean Platelet Volume 7.8 fL (6.9-10.8) Neutrophils (%) (Auto) 81.9 % (37.0-80.0) Lymphocytes (%) (Auto) 13.5 % (10.0-50.0) Monocytes (%) (Auto) 3.9 % (0.0-12.0) Eosinophils (%) (Auto) 0.1 % (0.0-7.0) Basophils (%) (Auto) 0.6 % (0.0-2.0) Neutrophils # (Auto) 8.6 10 ^3/uL (1.6-8.6) Lymphocytes # (Auto) 1.4 10 ^3/uL (0.4-5.4) Monocytes # (Auto) 0.4 10 ^3/uL (0-1.3) Eosinophils # (Auto) 0 10 ^3/uL (0-0.8) Basophils # (Auto) 0.1 10 ^3/uL (0-0.2) Nucleated Red Blood Cells 0.0 % Sodium Level 139 mmol/L (136-145) Potassium Level 3.8 mmol/L (3.5-5.1) Chloride Level 106 mmol/L (98-107) Carbon Dioxide Level 22 mmol/L (20-31) Anion Gap 11 (5-15) Blood Urea Nitrogen 10 mg/dL (9-23) Creatinine 0.70 mg/dL (0.700-1.30) Glomerular Filtration Rate Calc 96 mL/min (>90) BUN/Creatinine Ratio 14.3 (10.0-20.0) Serum Glucose 159 mg/dL (74-106) Calcium Level 9.0 mg/dL (8.7-10.4) Magnesium Level 2.1 mg/dL (1.6-2.6) Total Bilirubin 1.9 mg/dL (0.2-1.0) Aspartate Amino Transferase (AST) 19 U/L (13-40) Alanine Aminotransferase (ALT) 17 U/L (7-40) Alkaline Phosphatase 62 U/L (46-116) Total Protein 6.9 g/dL (5.7-8.2) Albumin 4.3 g/dL (3.2-4.8) POC Glucose 180 mg/dl (70-106) SARS-CoV-2 Antigen (Rapid) Negative (NEGATIVE) Troponin I High Sensitivity 201 ng/L (</=54) Test 03/31/25 16:25 03/31/25 13:45 Urine Color Light-yellow (Yellow) Urine Clarity Clear (Clear) Urine pH 5.5 (5.0-9.0) Urine Specific [place] 1.011 (1.001-1.035) Urine Protein Negative (Negative) Urine Ketones Negative (Negative) Urine Blood Negative /uL (Negative) Urine Nitrite Negative (Negative) Urine Bilirubin Negative (Negative) Urine Urobilinogen Normal mg/dL (Negative) Urine Leukocyte Esterase Negative /uL (Negative) Urine RBC None seen /hpf (0 - 3) Urine Microscopic WBC < 1 /HPF (0-3) Urine Squamous Epithelial Cells Few /hpf (<5) Urine Bacteria None seen /hpf (None Seen) Urine Glucose 2+ mg/dL (Normal) Prothrombin Time 11.5 sec (9.3-11.8) Prothrombin Time INR 1.09 (0.9-1.15) Activated Partial Thromboplast Time 30.8 SEC (24.5-34.5) Hemoglobin A1c 7.9 % A1C (<5.7) Triglycerides Level 131 mg/dL (< 150) Cholesterol Level 93 mg/dL (< 200) LDL Cholesterol 48 mg/dL (< 100) HDL Cholesterol 34 mg/dL (40-59) Thyroid Stimulating Hormone (TSH) 2.99 uIU/mL (0.55-4.78) Other Laboratory Tests 04/02/25 08:15 Brief Hx & Hospital Course: SEE DICTATED NOTE Condition at Discharge: Fair Final Diagnosis/Problems List ACUTE LA Discharge Disposition: Home Discharge Instruct/Medications Scheduled Cetirizine HCl (Cetirizine Hydrochloride), 1 TAB PO DAILY, (Reported) Hydrocodone-Acetaminophen (Hydrocodone Bitartrate/AC 10-325 mg), 1 TAB PO QID PRN, (Reported) Lisinopril (Lisinopril), 1 TAB PO DAILY, (Reported) Metformin Hydrochloride (Metformin Hcl), 1 TAB PO BID, (Reported) Rosuvastatin Calcium (Rosuvastatin Calcium), 1 TAB PO DAILY, (Reported) Discharge Statement: "Patient was advised to return to the ER or call 911 if any headaches, dizziness, shortness of breath, chest pain, abdominal pain, bleeding, fevers, or worsening of medical condition. Patient was counseled about treatment plan, medications, possible side effects, patientverbalized understanding. All questions were answered to the best of my ability. This discharge took greater then 30 minutes in planning, reviewing documentation, counseling the patient, and discussing with other team members." ASSESSMENT ASSESSMENT Assessment Date of Service: Apr 02, 2025 Billing Provider: XANDER ARCHIBALD MD Common Visit Codes: [id number] DISCH DAY >30min XANDER ARCHIBALD MD Apr 02, 2025 10:36
[2025-04-02] MEDS ORDERED: TICA90TA PO (10:39)
[2025-04-02] MEDS ORDERED: ASPI-498 PO (10:39)
[2025-04-02] MEDS ORDERED: METO25TA36 PO (10:39)
[2025-04-02] MEDS ORDERED: ROSU20TA56 PO (10:39)
[2025-04-02 12:35] VITALS: BP 139/84; PULSE 76; RESP 18; TEMP 97.7; O2SAT 96
--- NOTE | 2025-04-03 00:35 | DVHDS ---
DATE OF DISCHARGE: 04/02/2025 HISTORY: The patient is a 74-year-old gentleman who was admitted with complaints of chest pain and elevated troponin levels and has history of hypertension, diabetes, and Parkinson's disease. HOSPITAL COURSE: The patient had a chest x-ray that showed no acute abnormality. The patient's troponin levels were elevated, suggestive of acute [place]. The patient underwent coronary angiography with subsequent stenting of the LAD that had a 99% mid calcific stenosis. The patient had an echocardiogram done that showed ejection fraction of 45%. The patient will now be discharged home to resume his home medications as well as to be on aspirin 81 mg daily, Brilinta 90 mg b.i.d., rosuvastatin 20 mg at bedtime, Toprol-XL 25 mg daily, and he will continue lisinopril as well as his Parkinsonian medications. I have also given him a copy of the angiogram report. He will follow up with his primary as well as tool and fixture repairer at [facility] in the next one week. FINAL DIAGNOSES: * Acute myocardial infarction, status post angiography and stenting of the left anterior descending artery. * Diabetes mellitus. * Hypertension. * Parkinson's disease. * Hyperlipidemia. Time spent in discharge planning and review of plan with the patient and nursing was 39 minutes. MD BONNIE Garay/HERSON/FLORINA TID: [id number] RECEIPT: [id number]
== END 2025-04-02 13:15 | disposition home health service (06) | DRG 324 ==
LOC: ER 13:33 → EDBD 13:33 → OVERFLOW 19:35 → TELE-CENTR 22:28
PROVIDERS: ADMIT Internal Medicine; ATTEND Internal Medicine
PROC: 027034Z Dilation of Coronary Artery, One Artery with Drug-eluting Intraluminal Device, Percutaneous Approach (ICD-10-PCS; principal; 2025-04-01)
PROC: 02F03ZZ Fragmentation in Coronary Artery, One Artery, Percutaneous Approach (ICD-10-PCS; 2025-04-01)
PROC: 4A023N7 Measurement of Cardiac Sampling and Pressure, Left Heart, Percutaneous Approach (ICD-10-PCS; 2025-04-01)
PROC: B211YZZ Fluoroscopy of Multiple Coronary Arteries using Other Contrast (ICD-10-PCS; 2025-04-01)
DX: I21.4 Non-ST elevation (NSTEMI) myocardial infarction (principal); I25.10 Atherosclerotic heart disease of native coronary artery without angina pectoris; E11.40 Type 2 diabetes mellitus with diabetic neuropathy, unspecified; I10 Essential (primary) hypertension; G20.A1 Parkinson's disease without dyskinesia, without mention of fluctuations; E78.5 Hyperlipidemia, unspecified; I49.3 Ventricular premature depolarization; Z79.899 Other long term (current) drug therapy; Z79.82 Long term (current) use of aspirin
CPT/HCPCS: 36415; 71045; 80048; 80053; 80061; 81001; 82962; 83036; 83735; 84443; 84484; 85025; 85610; 85730; 87426; 92941; 92972; 93005; 93306; 93458; 96365; 99152; G0378; J1815; J2250

== ENCOUNTER 2025-04-03 11:41 | Inpatient (IN) | payer OTHER, MEDICAID ==
[~2025-04-03] VITALS: Ht 172.7 cm; Wt 81.4 kg
[~2025-04-03 11:41] MED LIST changes: +ASPI-498 PO; +METO25TA36 PO; +ROSU20TA56 PO; +TICA90TA PO
--- NOTE | 2025-04-03 12:09 | ECG ---
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
--- NOTE | 2025-04-03 12:09 | ED.PDOC ---
History of Present Illness HPI Comments This is a 74-year-old male who comes in with chief complaint of left lower quadrant pain since approximately 7:00 a.m. in the morning. The patient states that he was admitted to our facility for three days for an AR and had a cardiac stent placed two days ago. The patient was released yesterday and is now co mplaining of the left lower quadrant pain. He is complaining of some mild shortness for breath. He states that the pain is an 8/10 and is nonradiating. He denies any dysuria but states that he is having some difficulty urinating. 911 was called and the patient was transported to our facility. EN route, the patient had an Accu-Chek of [phone]. Chief Complaint: Abdominal Pain Time Seen by MD: 11:44 Primary Care Provider: UNKNOWN Reviewed Notes: Nurses Notes, Entry Level Buyer Notes, Medications, Allergies (No allergies to medications) Allergies: Coded Allergies: NO KNOWN ALLERGIES (Unverified , 03/31/25) Home Meds Active Scripts Rosuvastatin Calcium (Rosuvastatin Calcium) 20 Mg Tab, 20 MG PO QPM for 30 Days, #30 TAB 4 Refills Prov:XANDER ARCHIBALD MD 04/02/25 Metoprolol Succinate (Toprol Xl) 25 Mg Tab, 25 MG PO DAILY for 30 Days, #30 TAB 4 Refills Prov:XANDER ARCHIBALD MD 04/02/25 Ticagrelor Base (BRILINTA) 90 Mg Tab, 90 MG PO BID for 30 Days, #60 TAB 4 Ref ills Prov:XANDER ARCHIBALD MD 04/02/25 Aspirin (ASPIRIN 81) 81 Mg Tab, 81 MG PO DAILY for 30 Days, #30 TAB 4 Refills Prov:XANDER ARCHIBALD MD 04/02/25 Reported Medications Cetirizine HCl (Cetirizine Hydrochloride) 10 Mg Tab, 1 TAB PO DAILY for 100 Days, #100 04/01/25 Rosuvastatin Calcium (Rosuvastatin Calcium) 10 Mg Tab, 1 TAB PO DAILY for 100 Days, #100 04/01/25 Lisinopril (Lisinopril) 5 Mg Tab, 1 TAB PO DAILY for 100 Days, #100 04/01/25 Metformin Hydrochloride (Metformin Hcl) 1,000 Mg Tab, 1 TAB PO BID for 100 Days, #200 04/01/25 Hydrocodone-Acetaminophen (Hydrocodone Bitartrate/AC 10-325 mg) 1 Tab Tab, 1 TAB PO QID PRN for 30 Days, #120 04/01/25 Information Source: Patient, Emergency Med Personnel Mode of Arrival: EMS Severity: Moderate Timing: Hours (Symptoms started at 7:00 a.m. this morning) Duration: Since onset Prehospital treatment: Accucheck, IVF Location: Left lower quadrant pain as well as some mild shortness for breath Past Medical History PAST MEDICAL HISTORY: DM, High Lipids, HTN, AR Surgical History: PTCA Surgical History (Other): Cataract surgery Family History Family History: Family hx of DM Social History Smoker: Non-Smoker Alcohol: Denies ETOH Use Drugs: Denies Drug Use Lives In: Home Constitutional: denies: chills, diaphoresis, fatigue, fever, malaise, sweats, weakness, others EENTM: denies: blurred vision, double vision, ear bleeding, ear discharge, ear drainage, ear pain, ear ringing, eye pain, eye redness, hearing loss, mouth pain, mouth swelling, nasal discharge, nose bleeding, nose congestion, nose pain, photophobia, tearing, throat pain, throat swelling, voice changes, others Respiratory: reports: shortness of breath; denies: cough, hemoptysis, orthopnea, SOB at rest, SOB with excertion, stridor, wheezing, others Cardiovascular: denies: chest pain, dizzy spells, diaphoresis, Dyspnea on exertion, edema, irregular heart beat, left arm pain, lightheadedness, palpitations, PND, syncope, others Gastrointestinal: reports: abdominal pain; denies: abdomen distended, blood streaked bowels, constipated, diarrhea, dysphagia, difficulty swallowing, hematemesis, melena, nausea, poor appetite, poor fluid intake, rectal bleeding, rectal pain, vomiting, others Genitourinary: denies: burning, dysuria, flank pain, frequency, hematuria, incontinence, penile discharge, penile sore, pain, testicle pain, testicle swelling, urgency, others Neurological: denies: dizziness, fainting, headache, left sided numbness, left sided weakness, numbness, paresthesia, pre-existing deficit, right sided numbness, right sided weakness, seizure, speech problems, tingling, tremors, weakness, others Musculoskeletal: denies: back pain, gout, joint pain, joint swelling, muscle pain, muscle stiffness, neck pain, others Integumetry: denies: bruises, change in color, change in hair/nails, dryness, laceration, lesions, lumps, rash, wounds, others Allergic/Immunocompromised: denies: Difficulty Healing, Frequent Infections, Hives, Itching, others Hematologic/Lymphatic: denies: anemia, blood clots, easy bleeding, easy bru ising, swollen glands, others Endocrine: denies: excessive hunger, excessive sweating, excessive thirst, e xcessive urination, flushing, intolerance to cold, intolerance to heat, unexplained weight gain, unexplained weight loss, others Psychiatric: denies: anxiety, bipolar disorder, depression, hopeless, panic disorder, schizophrenia, sleepless, suicidal, others Physical Exam General Appearance: Moderate Distress HEENT: Normal ENT Inspection, Pharynx Normal, TMs Normal Neck: Full Range of Motion, Non-Tender, Normal, Normal Inspection Respiratory: Chest Non-Tender, Lungs Clear, No Accessory Muscle Use, No Respiratory Distress, Normal Breath Sounds Cardiovascular: No Edema, No JVD, No Murmur, No Gallop, Normal Peripheral Pu lses, Regular Rate/Rhythm Breast Exam: Deferred Gastrointestinal: LLQ, No Organomegaly, No Pulsatile Mass, Normal Bowel Sounds, Soft, Tenderness Genitalia: Deferred Pelvic: Deferred Rectal: Deferred Extremities: No calf tenderness, Normal capillary refill, Normal inspection, Normal range of motion, Non-tender, No pedal edema Musculoskeletal : Apperance: Normal Neurologic: Alert, towerman II-XII nml as Tested, Motor Weakness, Normal Affect, Normal Mood, No Sensory Deficits Cerebellar Function: Normal Reflexes: Normal Skin: Dry, Normal Color, Warm Lymphatic: No Adenopathy Was a procedure done? Was a procedure done?: No EKG EKG : Pulse Rate (adult): 69 [place]: Normal Cardiac Rhythm: NSR Block: None ST: Nonsp Differential Dx Considerations may include: Diverticulitis, generalized weakness, CVA, TIA, AR, UTI X-Ray, Labs, Meds, VS Vital Signs Date Time Temp Pulse Resp B/P (MAP) Pulse Ox O2 Delivery O2 Flow Rate FiO2 04/03/25 13:18 81 21 147/86 04/03/25 13:18 81 21 147/86 (106) 97 04/03/25 12:51 69 04/03/25 11:47 97.7 70 20 175/100 99 97.7 04/03/25 11:44 69 Lab Test 04/03/25 13:05 Range/Units White Blood Count 12.2 H 4.4-10.8 10^3/uL Red Blood Count 5.63 4.5-5.90 10^6/uL Hemoglobin 16.4 13.5-17.5 g/dL Hematocrit 46.0 41.0-53.0 % Mean Corpuscular Volume 81.7 80.0-100.0 fL Mean Corpuscular Hemoglobin 29.1 28.0-32.0 pg Mean Corpuscular Hemoglobin Concent 35.6 32.0-36.0 g/dL Red Cell Distribution Width 14.0 11.8-14.3 % Platelet Count 202 140-450 10^3/uL Mean Platelet Volume 7.6 6.9-10.8 fL Neutrophils (%) (Auto) 92.4 H 37.0-80.0 % Lymphocytes (%) (Auto) 4.8 L 10.0-50.0 % Monocytes (%) (Auto) 2.6 0.0-12.0 % Eosinophils (%) (Auto) 0.0 0.0-7.0 % Basophils (%) (Auto) 0.2 0.0-2.0 % Neutrophils # (Auto) 11.3 H 1.6-8.6 10 ^3/uL Lymphocytes # (Auto) 0.6 0.4-5.4 10 ^3/uL Monocytes # (Auto) 0.3 0-1.3 10 ^3/uL Eosinophils # (Auto) 0 0-0.8 10 ^3/uL Basophils # (Auto) 0 0-0.2 10 ^3/uL Nucleated Red Blood Cells 0.0 % Sodium Level 141 136-145 mmol/L Potassium Level 4.4 3.5-5.1 mmol/L Chloride Level 107 98-107 mmol/L Carbon Dioxide Level 22 20-31 mmol/L Anion Gap 12 5-15 Blood Urea Nitrogen 17 9-23 mg/dL Creatinine 0.89 0.700-1.30 mg/dL Glomerular Filtration Rate Calc 89 >90 mL/min BUN/Creatinine Ratio 19.1 10.0-20.0 Serum Glucose 241 H 74-106 mg/dL Calcium Level 8.8 8.7-10.4 mg/dL Current Medications Medications (Trade) Dose Ordered Sig/Adonis Route Start Time Stop Time Status Last Admin Ondansetron HCl (Zofran) 4 mg ONCE ONCE IV 04/03/25 12:00 04/03/25 12:01 DC 04/03/25 13:18 Morphine Sulfate 4 mg ONCE ONCE IV 04/03/25 12:00 04/03/25 12:01 DC 04/03/25 13:18 IV Hep-Lock was established The patient was given morphine 4 mg IV push for the pain The patient was given Zofran 4 mg IV push for the nausea The patient's CBC shows an elevated white blood cell count of 12.2 The chemistry panel is within normal limits A CAT scan of the abdomen and pelvis shows: IMPRESSION: Limited evaluation without contrast. Colonic diverticular disease. Prostatomegaly. Correlate with PSA levels. Atherosclerotic /coronary artery calcification disease Hepatic steatosis. We do not have an explanation for this pain at this time The patient is being admitted to the hospitalist Images Reviewed?: Images reviewed and evaluated by me Time of 1ST Reevaluation: 12:45 Reevaluation 1ST: Unchanged Patient Education/Counseling: Diagnosis, Treatment, Prognosis Family Education/Counseling: No Family Present SEPSIS Sepsis Screen Date sepsis recognized/suspect: Apr 03, 2025 Time Sepsis recognized/suspect: 1152 Recent Procedure: Yes On Antibiotic Therapy: No Respiratory Rate >20: No Heart Rate >90: No Temp<36 C (96.8 F) or >38.3 C: No SBP <90 or MAP <65 mmHG: No New Acute Mental Status Change: No Is the patient on CPAP, BIPAP,: No Physician Orders Urinalysis (04/03/25 11:47) Ct Ab Pel Wo Con-No Oral Or Iv (04/03/25 11:47) Heplock Iv (04/03/25 11:47) 3D Animator (04/03/25 11:47) Blood Pressure (04/03/25 11:47) Pulse Oximetry (04/03/25 11:47) Vital Signs Date Time Temp Pulse Resp B/P (MAP) Pulse Ox O2 Delivery O2 Flow Rate FiO2 04/03/25 13:18 81 21 147/86 04/03/25 13:18 81 21 147/86 (106) 97 04/03/25 12:51 69 04/03/25 11:47 97.7 70 20 175/100 99 97.7 04/03/25 11:44 69 Laboratory Tests Test 04/03/25 13:05 White Blood Count 12.2 10^3/uL (4.4-10.8) H Medications Medications Dose Ordered Sig/Adonis Route Start Time Stop Time Status Last Admin Dose Admin Morphine Sulfate 4 mg ONCE ONCE IV 04/03/25 12:00 04/03/25 12:01 DC 04/03/25 13:18 Ondansetron HCl 4 mg ONCE ONCE IV 04/03/25 12:00 04/03/25 12:01 DC 04/03/25 13:18 Departure 1 Departure Time of Disposition: 12:47 Impression: Primary Impression: Intractable abdominal pain Disposition: 09 ADMITTED INPATIENT Admit to: Med Surg Condition: Fair Critical Care Note Critical Care Time?: No Stability Stability form required: Yes Unstable for transfer: ED Physician Assesment (Clinical assesment) Heart Score Heart Score: Heart Score Response (Comments) Value History N/A 0 EKG N/A 0 Age N/A 0 Risk Factors N/A 0 Troponin N/A 0 Total 0 RAJINDER CUELLAR MD Apr 03, 2025 12:09
[2025-04-03 12:20] VITALS: PULSE 77; RESP 18; O2SAT 96
[2025-04-03] MEDS: ONDANSETRON HCL 4 MG/2 ML VIAL IV ONE (13:18)
[2025-04-03] MEDS: MORPHINE SULFATE 4 MG/ML SYR/VIAL IV ONE (13:18)
[2025-04-03 13:29] LABS: Hematocrit 46.0 % (41.0-53.0); Hemoglobin 16.4 g/dL (13.5-17.5); Mean Corpuscular Hemoglobin 29.1 pg (28.0-32.0); Mean Corpuscular Volume 81.7 fL (80.0-100.0); Nucleated Red Blood Cells % 0.0 %
[2025-04-03 13:39] LABS: Chloride 107 mmol/L (98-107); Potassium 4.4 mmol/L (3.5-5.1); Sodium 141 mmol/L (136-145)
[2025-04-03 13:40] LABS: Anion Gap 12 (5-15); Carbon Dioxide 22 mmol/L (20-31)
[2025-04-03 13:41] LABS: Calcium 8.8 mg/dL (8.7-10.4)
[2025-04-03 13:45] LABS: BUN/Creatinine Ratio 19.1 (10.0-20.0); Blood Urea Nitrogen 17 mg/dL (9-23)
[2025-04-03 13:47] LABS: Glucose 241 mg/dL (74-106)
--- NOTE | 2025-04-03 13:54 | DVH ---
Indication: llq pain Technique: CT axial images of the abdomen and pelvis are obtained without contrast. Coronal and sagit jenni reformats were obtained. Comparison: CT CHST AB PEL WO CON-NO IV/ORAL on DOS: 03/16/23 FINDINGS: There is limited interpretation of the abdomen and pelvis without administration of intravenous contr ast. Lung bases demonstrate no pleural effusion. Coronary artery calcification disease. Adrenal glands, spleen, pancreas unremarkable in shape. Liver demonstrates hepatic steatosis. No CT evidence for cholelithiasis. No hydronephrosis/ nephrolithiasis. Stomach partially distended. Small bowel loops are normal in caliber. Colonic diverticular disease. Moderate volume stool in the colon. Abdominal aortic atherosclerotic disease. Bladder is partially distended prostate enlarged measuring 5.6 cm transversely. No free pelvic fluid. No inguinal lymphadenopathy. [id number] bilateral sacroiliac degenerative joint disease. Thoracolumbar dextrocurvature IMPRESSION: Limited evaluation without contrast. Colonic diverticular disease. Prostatomegaly. Correlate with PSA levels. Atherosclerotic /coronary artery calcification disease Hepatic steatosis. Other findings as described.
[2025-04-03 14:37] LABS: Urine Protein, UAD Negative (Negative)
[2025-04-03 15:35] VITALS: PULSE 87; RESP 12; O2SAT 96
[2025-04-03] MEDS ORDERED: DEXTROSE (50%) 50ML SYRG IV PRN (16:30)
[2025-04-03] MEDS ORDERED: ACETAMINOPHEN 325 MG TAB PO PRN (16:30)
[2025-04-03] MEDS ORDERED: ONDANSETRON HCL 4 MG/2 ML VIAL IV PRN (16:30)
--- NOTE | 2025-04-03 16:54 | DVHHP2 ---
History of Present Illness Reason for Visit: Abdominal pain History of Present Illness Genaro Gómez is a 74-year-old male with past medical history of diabetes, hyperlipidemia, hypertension, AL, cataract surgery, PTCA x 1 here 2 days ago it deviates who presents to the ED with left lower quadrant abdominal pain that began at 7:00 a.m. this morning. He reports the pain is 1/10 dull and intermittent nature. He states that walking makes it better. Patient denies any recent trauma or injury, recent ingestion of spoiled food, recent travels, recent sick contacts, chest pain, shortness of breath, fever, chills, lightheadedness, weakness, dizziness, nausea, vomiting, diarrhea, or urinary symptoms. Cardiovascular: HTN, AL, hyperipidemia Endocrine: Diabetes Past Surgical History: Other (Cataract surgery) Review of Systems Gastrointestinal: Abdominal Pain Allergies: Coded Allergies: NO KNOWN ALLERGIES (Unverified , 03/31/25) Exam Vital Signs Vital Signs Date Time Temp Pulse Resp B/P (MAP) Pulse Ox O2 Delivery O2 Flow Rate FiO2 04/03/25 15:21 80 20 125/75 (92) 95 04/03/25 12:20 Room Air* 0 21 04/03/25 12:20 97.6 97.6 General Appearance: Alert, Oriented X3, Cooperative, No acute distress HEENT: Atraumatic, PERRLA, EOMI, Mucous membr. moist/pink Respiratory: Normal air movement Cardiovascular: Regular rate, Normal S1, Normal S2 Abdominal: Normal bowel sounds, Soft Extremities: No edema, Normal pulses, No tenderness/swelling Skin: No rashes, No breakdown, No significant lesion Neuro: Normal speech, Strength at 5/5 X4 ext, Normal tone, Sensation intact Psych/Mental Status: Mental status NL, Mood NL Labs/Xrays Labs Test 04/03/25 14:15 04/03/25 13:05 Range/Units Urine Color Yellow Yellow Urine Clarity Clear Clear Urine pH 5.5 5.0-9.0 Urine Specific [place] 1.018 1.001-1.035 Urine Protein Negative Negative Urine Ketones 1+ H Negative Urine Blood 2+ H Negative /uL Urine Nitrite Negative Negative Urine Bilirubin Negative Negative Urine Urobilinogen Normal Negative mg/dL Urine Leukocyte Esterase Negative Negative /uL Urine RBC 31 0 - 3 /hpf Urine Microscopic WBC 2 0-3 /HPF Urine Squamous Epithelial Cells Few <5 /hpf Urine Bacteria None seen None Seen /hpf Urine Mucus Few None Seen Urine Glucose 4+ H Normal mg/dL White Blood Count 12.2 H 4.4-10.8 10^3/uL Red Blood Count 5.63 4.5-5.90 10^6/uL Hemoglobin 16.4 13.5-17.5 g/dL Hematocrit 46.0 41.0-53.0 % Mean Corpuscular Volume 81.7 80.0-100.0 fL Mean Corpuscular Hemoglobin 29.1 28.0-32.0 pg Mean Corpuscular Hemoglobin Concent 35.6 32.0-36.0 g/dL Red Cell Distribution Width 14.0 11.8-14.3 % Platelet Count 202 140-450 10^3/uL Mean Platelet Volume 7.6 6.9-10.8 fL Neutrophils (%) (Auto) 92.4 H 37.0-80.0 % Lymphocytes (%) (Auto) 4.8 L 10.0-50.0 % Monocytes (%) (Auto) 2.6 0.0-12.0 % Eosinophils (%) (Auto) 0.0 0.0-7.0 % Basophils (%) (Auto) 0.2 0.0-2.0 % Neutrophils # (Auto) 11.3 H 1.6-8.6 10 ^3/uL Lymphocytes # (Auto) 0.6 0.4-5.4 10 ^3/uL Monocytes # (Auto) 0.3 0-1.3 10 ^3/uL Eosinophils # (Auto) 0 0-0.8 10 ^3/uL Basophils # (Auto) 0 0-0.2 10 ^3/uL Nucleated Red Blood Cells 0.0 % Sodium Level 141 136-145 mmol/L Potassium Level 4.4 3.5-5.1 mmol/L Chloride Level 107 98-107 mmol/L Carbon Dioxide Level 22 20-31 mmol/L Anion Gap 12 5-15 Blood Urea Nitrogen 17 9-23 mg/dL Creatinine 0.89 0.700-1.30 mg/dL Glomerular Filtration Rate Calc 89 >90 mL/min BUN/Creatinine Ratio 19.1 10.0-20.0 Serum Glucose 241 H 74-106 mg/dL Calcium Level 8.8 8.7-10.4 mg/dL Indication: llq pain Technique: CT axial images of the abdomen and pelvis are obtained without contrast. Coronal and sagittal reformats were obtained. Comparison: CT CHST AB PEL WO CON-NO IV/ORAL on DOS: 03/16/23 FINDINGS: There is limited interpretation of the abdomen and pelvis without administration of intravenous contrast. Lung bases demonstrate no pleural effusion. Coronary artery calcification disease. Adrenal glands, spleen, pancreas unremarkable in shape. Liver demonstrates hepatic steatosis. No CT evidence for cholelithiasis. No hydronephrosis/ nephrolithiasis. Stomach partially distended. Small bowel loops are normal in caliber. Colonic diverticular disease. Moderate volume stool in the colon. Abdominal aortic atherosclerotic disease. Bladder is partially distended prostate enlarged measuring 5.6 cm transversely. No free pelvic fluid. No inguinal lymphadenopathy. [id number] bilateral sacroiliac degenerative joint disease. Thoracolumbar dextrocurvature IMPRESSION: Limited evaluation without contrast. Colonic diverticular disease. Prostatomegaly. Correlate with PSA levels. Atherosclerotic /coronary artery calcification disease Hepatic steatosis. SEPSIS Sepsis Screen Date sepsis recognized/suspect: Apr 03, 2025 Time Sepsis recognized/suspect: 1220 Recent Procedure: Yes On Antibiotic Therapy: No Respiratory Rate >20: No Heart Rate >90: No Temp<36 C (96.8 F) or >38.3 C: No SBP <90 or MAP <65 mmHG: No New Acute Mental Status Change: No Is the patient on CPAP, BIPAP,: No Physician Orders Ct Ab Pel Wo Con-No Oral Or Iv (04/03/25 11:47) Heplock Iv (04/03/25 11:47) Inpatient Services Director (04/03/25 11:47) Blood Pressure (04/03/25 11:47) Pulse Oximetry (04/03/25 11:47) Vital Signs Date Time Temp Pulse Resp B/P (MAP) Pulse Ox O2 Delivery O2 Flow Rate FiO2 04/03/25 15:21 80 20 125/75 (92) 95 04/03/25 13:48 88 16 140/67 04/03/25 13:18 81 21 147/86 04/03/25 13:18 81 21 147/86 (106) 97 04/03/25 12:51 69 04/03/25 12:20 77 18 96 Room Air* 0 21 04/03/25 12:20 97.6 77 18 145/85 (105) 96 97.6 04/03/25 11:47 97.7 70 20 175/100 99 97.7 04/03/25 11:44 69 Laboratory Tests Test 04/03/25 13:05 White Blood Count 12.2 10^3/uL (4.4-10.8) H Medications Medications Dose Ordered Sig/Adonis Route Start Time Stop Time Status Last Admin Dose Admin Morphine Sulfate 4 mg ONCE ONCE IV 04/03/25 12:00 04/03/25 12:01 DC 04/03/25 13:18 4 MG Ondansetron HCl 4 mg ONCE ONCE IV 04/03/25 12:00 04/03/25 12:01 DC 04/03/25 13:18 4 MG Assessment/Plan Assessment/Plan Assessment Intractable abdominal pain Leukocytosis unclear etiology Colonic diverticular disease Prostatomegaly Atherosclerotic/coronary artery calcification disease Hepatic steatosis History of diabetes History of hyperlipidemia History of hypertension History of AL status post PTCA x2 days ago at [facility] History of cataract surgery Plan Admit to [facility] Hemoglobin A1c ISS and Accu-Cheks PSA Antiemetics Pain management IV antibiotics-ceftriaxone Chest x-ray Diet Home medications reconciled DVT prophylaxis-patient on Brilinta PUD prophylaxis-PPIs Discussed plan of care with patient and nurse [id number] Preventive counseling healthy eating habits, physical activity, and regular checkups Plan discussed with: Patient Date of Service: Apr 03, 2025 Billing Provider: CLAUDIA AKINS Common Visit Codes: [id number] INP/OBS CARE (HIGH) Secondary Visit Codes: [id number] COUNSELING IND CLAUDIA AKINS Apr 03, 2025 16:54
--- NOTE | 2025-04-03 17:24 | DVH ---
CHEST RADIOGRAPH Indication: r/o pna Technique: Single frontal view of the chest was obtained Comparison: XY CHEST PORTABLE on DOS: 03/31/25 FINDINGS: Lines and Tubes: None Lungs: No focal consolidation. Pleura: No effusion. No pneumothorax. Cardiomediastinal contours: Unremarkable Bones: No acute osseous abnormality. IMPRESSION: No acute cardiopulmonary disease.
[2025-04-03] MEDS: ACCU-CHEK COMFORT CURVE STRIP VI SCH (17:51)
[2025-04-03] MEDS: InsuLIN REG 1unit/0.01ml Soln (100units/ml) SC SCH (17:53)
[2025-04-03 18:34] VITALS: BP_SYST 142; BP_SYST 148; BP_DIAS 76; BP_DIAS 89; PULSE 64; PULSE 69; RESP 17; RESP 20; TEMP 96.4; TEMP 97.7; O2SAT 98
[2025-04-03 20:00] VITALS: RESP 13
[2025-04-03 21:00] VITALS: BP 134/78; PULSE 82; RESP 22; TEMP 97.7; O2SAT 98
[2025-04-03] MEDS: TICAGRELOR 90 MG TAB PO SCH (22:45)
[2025-04-04 01:00] VITALS: BP 133/78; PULSE 63; RESP 19; TEMP 98.2; O2SAT 94
[2025-04-04 05:00] VITALS: BP 119/68; PULSE 80; RESP 19; TEMP 97.2; O2SAT 94
[2025-04-04 08:00] LABS: Hematocrit 43.3 % (41.0-53.0); Hemoglobin 15.7 g/dL (13.5-17.5); Mean Corpuscular Hemoglobin 29.5 pg (28.0-32.0); Mean Corpuscular Volume 81.3 fL (80.0-100.0); Nucleated Red Blood Cells % 0.1 %
[2025-04-04 08:07] LABS: Prostate Specific Antigen 2.2 ng/mL (0.0-4.0)
[2025-04-04 08:14] LABS: Alanine Aminotransferase 37 U/L (7-40); Albumin 4.0 g/dL (3.2-4.8); Alkaline Phosphatase 60 U/L (46-116); Anion Gap 12 (5-15); BUN/Creatinine Ratio 16.2 (10.0-20.0); Blood Urea Nitrogen 12 mg/dL (9-23); Calcium 8.9 mg/dL (8.7-10.4); Carbon Dioxide 21 mmol/L (20-31); Potassium 3.7 mmol/L (3.5-5.1); Sodium 141 mmol/L (136-145); Total Protein 6.4 g/dL (5.7-8.2)
[2025-04-04 08:15] LABS: Bilirubin, Total 1.2 mg/dL (0.2-1.0)
[2025-04-04 08:17] LABS: Chloride 108 mmol/L (98-107); Glucose 191 mg/dL (74-106)
[2025-04-04 08:52] VITALS: BP 122/81; PULSE 74; RESP 16; TEMP 98.2; O2SAT 98
[2025-04-04] MEDS: LISINOPRIL 5 MG TAB PO SCH (09:39)
[2025-04-04] MEDS: METOPROLOL SUCCINATE XL 50 MG TAB PO SCH (09:39)
[2025-04-04] MEDS: ASPirin-EC 81 mg tab PO SCH (09:40)
[2025-04-04 13:00] VITALS: BP 131/70; PULSE 72; RESP 16; TEMP 97.4; O2SAT 98
--- NOTE | 2025-04-04 14:49 | DVHDS2 ---
Discharge Summary Date of Admission Apr 03, 2025 at 16:28 Date of Discharge: Apr 04, 2025 Labs/Diagnostic Data: Laboratory Results Test 04/04/25 12:00 04/04/25 06:57 04/03/25 14:15 04/03/25 13:05 POC Glucose 247 mg/dl (70-106) White Blood Count 8.2 10^3/uL (4.4-10.8) Red Blood Count 5.33 10^6/uL (4.5-5.90) Hemoglobin 15.7 g/dL (13.5-17.5) Hematocrit 43.3 % (41.0-53.0) Mean Corpuscular Volume 81.3 fL (80.0-100.0) Mean Corpuscular Hemoglobin 29.5 pg (28.0-32.0) Mean Corpuscular Hemoglobin Concent 36.3 g/dL (32.0-36.0) Red Cell Distribution Width 13.7 % (11.8-14.3) Platelet Count 192 10^3/uL (140-450) Mean Platelet Volume 7.5 fL (6.9-10.8) Neutrophils (%) (Auto) 77.1 % (37.0-80.0) Lymphocytes (%) (Auto) 17.2 % (10.0-50.0) Monocytes (%) (Auto) 4.1 % (0.0-12.0) Eosinophils (%) (Auto) 0.8 % (0.0-7.0) Basophils (%) (Auto) 0.8 % (0.0-2.0) Neutrophils # (Auto) 6.3 10 ^3/uL (1.6-8.6) Lymphocytes # (Auto) 1.4 10 ^3/uL (0.4-5.4) Monocytes # (Auto) 0.3 10 ^3/uL (0-1.3) Eosinophils # (Auto) 0.1 10 ^3/uL (0-0.8) Basophils # (Auto) 0.1 10 ^3/uL (0-0.2) Nucleated Red Blood Cells 0.1 % Sodium Level 141 mmol/L (136-145) Potassium Level 3.7 mmol/L (3.5-5.1) Chloride Level 108 mmol/L (98-107) Carbon Dioxide Level 21 mmol/L (20-31) Anion Gap 12 (5-15) Blood Urea Nitrogen 12 mg/dL (9-23) Creatinine 0.74 mg/dL (0.700-1.30) Glomerular Filtration Rate Calc 94 mL/min (>90) BUN/Creatinine Ratio 16.2 (10.0-20.0) Serum Glucose 191 mg/dL (74-106) Calcium Level 8.9 mg/dL (8.7-10.4) Total Bilirubin 1.2 mg/dL (0.2-1.0) Aspartate Amino Transferase (AST) 30 U/L (13-40) Alanine Aminotransferase (ALT) 37 U/L (7-40) Alkaline Phosphatase 60 U/L (46-116) Total Protein 6.4 g/dL (5.7-8.2) Albumin 4.0 g/dL (3.2-4.8) Urine Color Yellow (Yellow) Urine Clarity Clear (Clear) Urine pH 5.5 (5.0-9.0) Urine Specific [place] 1.018 (1.001-1.035) Urine Protein Negative (Negative) Urine Ketones 1+ (Negative) Urine Blood 2+ /uL (Negative) Urine Nitrite Negative (Negative) Urine Bilirubin Negative (Negative) Urine Urobilinogen Normal mg/dL (Negative) Urine Leukocyte Esterase Negative /uL (Negative) Urine RBC 31 /hpf (0 - 3) Urine Microscopic WBC 2 /HPF (0-3) Urine Squamous Epithelial Cells Few /hpf (<5) Urine Bacteria None seen /hpf (None Seen) Urine Mucus Few (None Seen) Urine Glucose 4+ mg/dL (Normal) Free Prostate Specific Antigen 0.84 ng/mL (N/A) Percent Free Prostate Specific Ag 38.2 % (.) Prostate Specific Antigen Total 2.2 ng/mL (0.0-4.0) Other Laboratory Tests 04/04/25 06:57 Brief Hx & Hospital Course: see dictated note Condition at Discharge: Fair Final Diagnosis/Problems List abd pain Discharge Disposition: Home Discharge Instruct/Medications Diet: Cardiac 2g Na,low cholest Activity: No Restrictions, As Tolerated Follow Up/Referral: donna sales pcp in 1 wk Medications: resume home meds Scheduled Aspirin (Aspirin 81), 81 MG PO DAILY Cetirizine HCl (Cetirizine Hydrochloride), 1 TAB PO DAILY, (Reported) Hydrocodone-Acetaminophen (Hydrocodone Bitartrate/AC 10-325 mg), 1 TAB PO QID PRN, (Reported) Lisinopril (Lisinopril), 1 TAB PO DAILY, (Reported) Metformin Hydrochloride (Metformin Hcl), 1 TAB PO BID, (Reported) Metoprolol Succinate (Toprol Xl), 25 MG PO DAILY Rosuvastatin Calcium (Rosuvastatin Calcium), 1 TAB PO DAILY, (Reported) Rosuvastatin Calcium (Rosuvastatin Calcium), 20 MG PO QPM Ticagrelor Base (Brilinta), 90 MG PO BID Discharge Statement: "Patient was advised to return to the ER or call 911 if any headaches, dizziness, shortness of breath, chest pain, abdominal pain, bleeding, fevers, or worsening of medical condition. Patient was counseled about treatment plan, medications, possible side effects, patientverbalized understanding. All questions were answered to the best of my ability. This discharge took greater then 30 minutes in planning, reviewing documentation, counseling the patient, and discussing with other team members." ASSESSMENT ASSESSMENT Assessment abd pain Date of Service: Apr 04, 2025 Billing Provider: XANDER ARCHIBALD MD Common Visit Codes: 74290-QSI/OBS DISCH DAY >30min XANDER ARCHIBALD MD Apr 04, 2025 14:49
[2025-04-04] MEDS ORDERED: TAMS-35 PO (14:51)
--- NOTE | 2025-04-04 15:01 | DVHDS ---
DATE OF DISCHARGE: 04/04/2025 HISTORY OF PRESENT ILLNESS: The patient is a 74-year-old gentleman who was admitted with complaints of abdominal pain and has a history of recent coronary artery disease with stent, hyperlipidemia, hypertension, and diabetes mellitus. HOSPITAL COURSE: The patient had a CT of abdomen and pelvis that showed evidence of prostatomegaly with hepatic steatosis. The patient's chemistry is within normal limits. His UA showed occasional rbc's. The patient currently is doing well and wishes to go home. He will be discharged to resume his home medications as well as to be on Flomax 0.4 mg at bedtime. He will follow up with his primary in the next 1-2 weeks. FINAL DIAGNOSES: Therefore: * Abdominal pain with questionable fecal impaction. * BPH. * Coronary artery disease with status post stenting. * Diabetes mellitus. * Hypertension. * Parkinson's disease. * Hyperlipidemia. Time spent in discharge planning and review of plan with the patient and nursing was 38 minutes. MD BONNIE Garay/EKT TID: [id number] RECEIPT: [id number]
[2025-04-04] MEDS ORDERED: ATORVASTATIN 20 MG TAB PO SCH (22:00)
== END 2025-04-04 17:57 | disposition home or self-care (01) | DRG 390 ==
LOC: ER 11:41 → EDBD 11:41 → OVERFLOW 16:28 → WEST WING 18:46
PROVIDERS: ADMIT Internal Medicine; ATTEND Internal Medicine
DX: K56.41 Fecal impaction (principal); K76.0 Fatty (change of) liver, not elsewhere classified; I25.10 Atherosclerotic heart disease of native coronary artery without angina pectoris; K57.30 Diverticulosis of large intestine without perforation or abscess without bleeding; N40.0 Benign prostatic hyperplasia without lower urinary tract symptoms; G20.A1 Parkinson's disease without dyskinesia, without mention of fluctuations; E11.9 Type 2 diabetes mellitus without complications; I10 Essential (primary) hypertension; E78.5 Hyperlipidemia, unspecified; Z79.84 Long term (current) use of oral hypoglycemic drugs; Z79.899 Other long term (current) drug therapy; Z83.3 Family history of diabetes mellitus; Z95.5 Presence of coronary angioplasty implant and graft; I25.2 Old myocardial infarction
CPT/HCPCS: 36415; 71045; 74176; 80048; 80053; 81001; 82962; 84154; 85025; 87081; 93005; G0378; J1815; J2405

== ENCOUNTER 2025-06-24 12:59 | Emergency (ER) | payer OTHER, MEDICAID ==
[~2025-06-24] VITALS: Ht 172.7 cm; Wt 80.8 kg
[~2025-06-24 12:59] MED LIST changes: +TAMS-35 PO
--- NOTE | 2025-06-24 13:44 | ED.PDOC ---
History of Present Illness HPI Comments A 75 year old male with PMHx of DMT2 presents to the emergency department for chief complaint of hyperglycemia onset 1 week. Pt reports symptoms of loss of appetite, frequency in urgency, and dry mouth. Pt denies smoking, shortness of breath, chest pain, fever, or chills. Pt reports they have had consistent elevated blood glucose, checking multiple times this week and consistently reading greater than 500. Pt reports that most recent reading was 580, however Pt is A&O4 vitals are otherwise stable at this time. Chief Complaint: Hyperglycemia Time Seen by MD: 13:41 Primary Care Provider: UNKNOWN Reviewed Notes: Nurses Notes, Medications, Allergies Allergies: Coded Allergies: NO KNOWN ALLERGIES (Unverified , 03/31/25) Home Meds Active Scripts Tamsulosin Hcl (Flomax) 0.4 Mg Cap, 0.4 MG PO QPM for 30 Days, #30 CAP 4 Refills Prov:XANDER ARCHIBALD MD 04/04/25 Rosuvastatin Calcium (Rosuvastatin Calcium) 20 Mg Tab, 20 MG PO QPM for 30 Days, #30 TAB 4 Refills Prov:XANDER ARCHIBALD MD 04/02/25 Metoprolol Succinate (Toprol Xl) 25 Mg Tab, 25 MG PO DAILY for 30 Days, #30 TAB 4 Refills Prov:XANDER ARCHIBALD MD 04/02/25 Ticagrelor Base (BRILINTA) 90 Mg Tab, 90 MG PO BID for 30 Days, #60 TAB 4 Refills Prov:XANDER ARCHIBALD MD 04/02/25 Aspirin (ASPIRIN 81) 81 Mg Tab, 81 MG PO DAILY for 30 Days, #30 TAB 4 Refills Prov:XANDER ARCHIBALD MD 04/02/25 Reported Medications Cetirizine HCl (Cetirizine Hydrochloride) 10 Mg Tab, 1 TAB PO DAILY for 100 Da ys, #100 04/01/25 Rosuvastatin Calcium (Rosuvastatin Calcium) 10 Mg Tab, 1 TAB PO DAILY for 100 Days, #100 04/01/25 Lisinopril (Lisinopril) 5 Mg Tab, 1 TAB PO DAILY for 100 Days, #100 04/01/25 Metformin Hydrochloride (Metformin Hcl) 1,000 Mg Tab, 1 TAB PO BID for 100 Days, #200 04/01/25 Hydrocodone-Acetaminophen (Hydrocodone Bitartrate/AC 10-325 mg) 1 Tab Tab, 1 TAB PO QID PRN for 30 Days, #120 04/01/25 Information Source: Patient Mode of Arrival: Ambulatory Severity: Moderate Timing: Weeks Prehospital treatment: None Past Medical History PAST MEDICAL HISTORY: DM, High Lipids, HTN, NC Surgical History: PTCA Family History Family History: Family hx of DM Social History Smoker: Non-Smoker Alcohol: Denies ETOH Use Drugs: Denies Drug Use Lives In: Home Constitutional: denies: chills, diaphoresis, fatigue, fever, malaise, sweats, weakness, others EENTM: reports: others (dry mouth); denies: blurred vision, double vision, ear bleeding, ear discharge, ear drainage, ear pain, ear ringing, eye pain, eye redness, hearing loss, mouth pain, mouth swelling, nasal discharge, nose blee ding, nose congestion, nose pain, photophobia, tearing, throat pain, throat swelling, voice changes Respiratory: denies: cough, hemoptysis, orthopnea, SOB at rest, shortness of breath, SOB with excertion, stridor, wheezing, others Cardiovascular: denies: chest pain, dizzy spells, diaphoresis, Dyspnea on exertion, edema, irregular heart beat, left arm pain, lightheadedness, palpitations, PND, syncope, others Gastrointestinal: reports: poor appetite; denies: abdomen distended, abdominal pain, blood streaked bowels, constipated, diarrhea, dysphagia, difficulty swallowing, hematemesis, melena, nausea, poor fluid intake, rectal bleeding, rectal pain, vomiting, others Genitourinary: denies: burning, dysuria, flank pain, frequency, hematuria, incontinence, penile discharge, penile sore, pain, testicle pain, testicle swelling, urgency, others Neurological: denies: dizziness, fainting, headache, left sided numbness, left sided weakness, numbness, paresthesia, pre-existing deficit, right sided numbness, right sided weakness, seizure, speech problems, tingling, tremors, weakness, others Musculoskeletal: denies: back pain, gout, joint pain, joint swelling, muscle pain, muscle stiffness, neck pain, others Integumetry: denies: bruises, change in color, change in hair/nails, dryness, laceration, lesions, lumps, rash, wounds, others Allergic/Immunocompromised: denies: Difficulty Healing, Frequent Infections, Hives, Itching, others Hematologic/Lymphatic: denies: anemia, blood clots, easy bleeding, easy bruising, swollen glands, others Endocrine: reports: excessive urination; denies: excessive hunger, excessive sweating, excessive thirst, flushing, intolerance to cold, intolerance to heat, unexplained weight gain, unexplained weight loss, others Psychiatric: denies: anxiety, bipolar disorder, depression, hopeless, panic disorder, schizophrenia, sleepless, suicidal, others All Other Systems: Reviewed and Negative Physical Exam General Appearance: Moderate Distress HEENT: Normal ENT Inspection, Pharynx Normal, TMs Normal Neck: Full Range of Motion, Non-Tender, Normal, Normal Inspection Respiratory: Chest Non-Tender, Lungs Clear, No Accessory Muscle Use, No Respiratory Distress, Normal Breath Sounds Cardiovascular: No Edema, No JVD, No Murmur, No Gallop, Normal Peripheral Pulses, Regular Rate/Rhythm Breast Exam: Deferred Gastrointestinal: No Organomegaly, Non Tender, No Pulsatile Mass, Normal Bowel Sounds, Soft Genitalia: Deferred Pelvic: Deferred Rectal: Deferred Extremities: No calf tenderness, Normal capillary refill, Normal inspection, Normal range of motion, Non-tender, No pedal edema Musculoskeletal : Apperance: Normal Neurologic: Alert, medical auditor II-XII nml as Tested, No Motor Deficits, Normal Affect, Normal Mood, No Sensory Deficits Cerebellar Function: Normal Reflexes: Normal Skin: Dry, Normal Color, Warm Peripheral Pulses: 3+ Radial (R), 3+ Radial (L) Lymphatic: No Adenopathy Was a procedure done? Was a procedure done?: No Differential Dx Considerations may include: Hyperglycemia X-Ray, Labs, Meds, VS Vital Signs Date Time Temp Pulse Resp B/P (MAP) Pulse Ox O2 Delivery O2 Flow Rate FiO2 06/24/25 13:04 98.0 74 20 154/92 97 98.0 Lab Test 06/24/25 14:51 06/24/25 14:48 Range/Units POC Glucose 363 H 70-106 mg/dl White Blood Count 9.2 4.4-10.8 10^3/uL Red Blood Count 5.54 4.5-5.90 10^6/uL Hemoglobin 15.9 13.5-17.5 g/dL Hematocrit 44.9 41.0-53.0 % Mean Corpuscular Volume 81.1 80.0-100.0 fL Mean Corpuscular Hemoglobin 28.7 28.0-32.0 pg Mean Corpuscular Hemoglobin Concent 35.4 32.0-36.0 g/dL Red Cell Distribution Width 13.7 11.8-14.3 % Platelet Count 219 140-450 10^3/uL Mean Platelet Volume 7.9 6.9-10.8 fL Neutrophils (%) (Auto) 77.5 37.0-80.0 % Lymphocytes (%) (Auto) 17.2 10.0-50.0 % Monocytes (%) (Auto) 4.4 0.0-12.0 % Eosinophils (%) (Auto) 0.5 0.0-7.0 % Basophils (%) (Auto) 0.4 0.0-2.0 % Neutrophils # (Auto) 7.1 1.6-8.6 10 ^3/uL Lymphocytes # (Auto) 1.6 0.4-5.4 10 ^3/uL Monocytes # (Auto) 0.4 0-1.3 10 ^3/uL Eosinophils # (Auto) 0 0-0.8 10 ^3/uL Basophils # (Auto) 0 0-0.2 10 ^3/uL Nucleated Red Blood Cells 0.5 % Sodium Level 139 136-145 mmol/L Potassium Level 4.5 3.5-5.1 mmol/L Chloride Level 108 H 98-107 mmol/L Carbon Dioxide Level 23 20-31 mmol/L Anion Gap 8 5-15 Blood Urea Nitrogen 11 9-23 mg/dL Creatinine 0.88 0.700-1.30 mg/dL Glomerular Filtration Rate Calc 89 >90 mL/min BUN/Creatinine Ratio 12.5 10.0-20.0 Serum Glucose 380 H 74-106 mg/dL Calcium Level 9.4 8.7-10.4 mg/dL Current Medications Medications (Trade) Dose Ordered Sig/Adonis Route Start Time Stop Time Status Last Admin Sodium Chloride 1,000 ml @ 1,000 mls/hr Q1H ONCE IV 06/24/25 13:45 06/24/25 14:44 DC 06/24/25 14:41 Insulin Human Regular (InsuLIN R) 10 units ONCE ONCE IV 06/24/25 13:45 06/24/25 13:46 DC 06/24/25 15:02 Patient alert. Blood sugar elevated. Vitals stable. Answering questions. Establish intravenous access. Was given fluids. Was given insulin. Explained to the patient. Was told to follow up with his primary care physician. Was told to come back if there is any problem. Time of 1ST Reevaluation: 14:11 Reevaluation 1ST: Unchanged Patient Education/Counseling: Diagnosis, Treatment, Need For Follow Up Family Education/Counseling: Diagnosis, Treatment, Need For Follow Up, No Family Present SEPSIS Sepsis Screen Date sepsis recognized/suspect: Jun 24, 2025 Time Sepsis recognized/suspect: 1304 Recent Procedure: No On Antibiotic Therapy: No Respiratory Rate >20: No Heart Rate >90: No Temp<36 C (96.8 F) or >38.3 C: No SBP <90 or MAP <65 mmHG: No New Acute Mental Status Change: No Is the patient on CPAP, BIPAP,: No Physician Orders Sodium Chloride 0.9% (06/24/25 13:45) Vital Signs Date Time Temp Pulse Resp B/P (MAP) Pulse Ox O2 Delivery O2 Flow Rate FiO2 06/24/25 13:04 98.0 74 20 154/92 97 98.0 Laboratory Tests Test 06/24/25 14:48 White Blood Count 9.2 10^3/uL (4.4-10.8) Medications Medications Dose Ordered Sig/Adonis Route Start Time Stop Time Status Last Admin Dose Admin Insulin Human Regular 10 units ONCE ONCE IV 06/24/25 13:45 06/24/25 13:46 DC 06/24/25 15:02 Sodium Chloride 1,000 ml @ 1,000 mls/hr Q1H ONCE IV 06/24/25 13:45 06/24/25 14:44 DC 06/24/25 14:41 Departure 1 Departure Time of Disposition: 15:40 Impression: Primary Impression: Uncontrolled diabetes mellitus Qualified Codes: E13.65 - Other specified diabetes mellitus with hyperglycemia Additional Impression: HTN (hypertension) Qualified Codes: I10 - Essential (primary) hypertension Disposition: 01 HOME / SELF CARE / HOMELESS Condition: Good Discharged With: Self Critical Care Note Critical Care Time?: No Stability Stability form required: No Heart Score Heart Score: Heart Score Response (Comments) Value History N/A 0 EKG N/A 0 Age N/A 0 Risk Factors N/A 0 Troponin N/A 0 Total 0 I personally scribed for KAR GOINS MD ([email or web address]) on 06/24/25 at 13:44. Electronically submitted by Vanna Hampton ([email or web address]). I personally scribed for KAR GOINS MD ([email or web address]) on 06/24/25 at 14:09. Electronically submitted by Vanna Hampton ([email or web address]). KAR GOINS MD Jun 24, 2025 13:44
[2025-06-24] MEDS ORDERED: SODIUM CHLORIDE 0.9% 1,000 ML IV ONE (13:45)
[2025-06-24] MEDS: SODIUM CHLORIDE 0.9% 1,000 ML IV ONE (14:41)
[2025-06-24] MEDS: InsuLIN REG 1unit/0.01ml Soln (100units/ml) IV ONE (15:02)
[2025-06-24 15:19] LABS: Hematocrit 44.9 % (41.0-53.0); Hemoglobin 15.9 g/dL (13.5-17.5); Mean Corpuscular Hemoglobin 28.7 pg (28.0-32.0); Mean Corpuscular Volume 81.1 fL (80.0-100.0); Nucleated Red Blood Cells % 0.5 %
[2025-06-24 15:29] LABS: Potassium 4.5 mmol/L (3.5-5.1); Sodium 139 mmol/L (136-145)
[2025-06-24 15:30] LABS: Anion Gap 8 (5-15); Carbon Dioxide 23 mmol/L (20-31)
[2025-06-24 15:31] LABS: Calcium 9.4 mg/dL (8.7-10.4)
[2025-06-24 15:36] LABS: BUN/Creatinine Ratio 12.5 (10.0-20.0); Blood Urea Nitrogen 11 mg/dL (9-23); Chloride 108 mmol/L (98-107); Glucose 380 mg/dL (74-106)
[2025-06-24 16:31] VITALS: BP 148/68; PULSE 68; RESP 16; TEMP 98.6; O2SAT 97
== END 2025-06-24 16:34 | disposition home or self-care (01) ==
LOC: ER 12:59
DX: E11.65 Type 2 diabetes mellitus with hyperglycemia (principal); I10 Essential (primary) hypertension; E78.5 Hyperlipidemia, unspecified; Z79.899 Other long term (current) drug therapy; Z79.84 Long term (current) use of oral hypoglycemic drugs; Z79.82 Long term (current) use of aspirin
CPT/HCPCS: 36415; 80048; 82947; 85025; 96361; 96374; 99283; J1815; J7030; 82962